=== PATIENT | male | born 1990 | race Two or more races ===

== ENCOUNTER 2021-06-28 09:12 | Emergency (ER) | payer MEDICAID, SELFPAY ==
--- NOTE | ~2021-06-28 | XR_ITS ---
EXAMINATION: XR RIBS, RIGHT CLINICAL INFORMATION: Right upper pectoral pain. COMPARISON: None TECHNIQUE: 3 views of the right ribs and frontal view of the chest were obtained. FINDINGS: Linear airspace disease is noted at left lung base, most consistent with hypoventilatory, atelectatic changes. The cardiomediastinal silhouette and pulmonary vasculature are normal. Osseous structures are unremarkable. Ribs are intact. No fractures are identified. XR/XR ribs RT min 3V w CXR1V IMPRESSION: No radiographic evidence of any displaced right hemithoracic rib fracture. Linear airspace disease at left lung base, most consistent with hypoventilatory, atelectatic changes.
[2021-06-28 09:29] VITALS: BP 194/86; PULSE 84; RESP 18; O2SAT 99; BMI 39.8
--- NOTE | 2021-06-28 11:21 | ED.GENADULT ---
HPI - General Adult General Chief complaint: General Medical Stated complaint: heard crack in chest Time Seen by Provider: 06/28/21 11:12 Source: patient Mode of arrival: ambulatory History of Present Illness HPI narrative: 31-year-old male with a past medical history of asthma presenting to the ED complaining of right-sided anterior chest wall pain s/p pulling a wrench while working on trunk 1.5wks ago. Denies direct injury/trauma or fall. Reports pain worse with movement, deep breathing and palpation. Denies CP, SOB, fever/chills Onset (ago): day(s) Related Data Previous Rx's Medication Instructions Recorded cyclobenzaprine 5 mg tablet 5 mg PO Q8H PRN 5 Days #14 tab 06/28/21 doxycycline hyclate 100 mg tablet 100 mg PO BID 7 Days #14 tab 06/28/21 lidocaine 5 % topical patch 1 patch TOPICAL DAILY PRN #30 ea 06/28/21 (Lidoderm) MDD remove after 12 hours naproxen 500 mg tablet 500 mg PO BID PRN 10 Days #20 tab 06/28/21 Allergies Allergy/AdvReac Type Severity Reaction Status Date / Time No Known Allergies Allergy Unverified 11/14/19 18:29 Review of Systems Review of Systems: Constitutional: No Fever, No Chills ENT/Mouth: No Ear Pain, No Nasal Congestion, No Sinus Pain, No sore throat, No Rhinorrhea, No Swallowing Difficulty Cardiovascular: + Chest Wall Pain, No SOB Respiratory: No Cough, No Sputum Gastrointestinal: No Nausea, No Vomiting, No Diarrhea, No Constipation, No Abdominal pain Genitourinary: No Dysuria, No Urinary Frequency, No Urgency, No Flank Pain Musculoskeletal: No joint pain, No Myalgias, No Joint Swelling Skin: No Skin Lesions, No rash Neuro: No Weakness, No Numbness, No Paresthesias Yes all other systems are reviewed and are negative [facility] Past Medical History Attestation statement: The following information was validated with the patient. Medical History Asthma Social History Social History Advance Directives: No Advance Directives Information Provided: No Physical Exam ED Vital Signs: Vital Signs - 24 hr 06/28/21 09:29 Pulse Rate 84 Respiratory Rate 18 Blood Pressure 194/86 H Pulse Oximetry 99 BMI result Body Mass Index 39.8 Const General: cooperative, healthy appearing and no acute distress Orientation/consciousness: patient oriented x3 Limitations: no limitations HENMT Head: Yes normal to inspection and Yes atraumatic Ears: hearing grossly normal bilaterally General nose exam: Normal external nose present Face and sinus: Yes normal facial exam Eyes General: appearance normal, both eyes and all related structures EOM: EOMs intact bilaterally Neck Neck: Yes normal visual inspection and Yes no meningeal signs Chest Other: right anterior chest wall ttp reproducing subjective complaint, no crepitus, no erythema Chest palpation & inspection: normal inspection of the chest and tenderness Resp Effort & Inspection: normal respiratory effort and no respiratory distress Auscultation: clear to auscultation bilaterally, no rales, no rhonchi and no wheezes Cardio Rate: regular rate Heart sounds: S1 normal heart sound present and S2 normal heart sound present GI Inspection: Yes normal to inspection Palpation (GI): Soft to palpation, nontender, no guarding and not rigid Skin Rashes: no rashes Wounds: no wounds Neuro General: patient oriented x3, tone normal and no meningeal signs Gait exam (Neuro): Normal gait present Extrem General: Yes normal to inspection Course Course Course Narrative: XR ribs RT min 3V w CXR1V IMPRESSION: No radiographic evidence of any displaced right hemithoracic rib fracture. Linear airspace disease at left lung base, most consistent with hypoventilatory, atelectatic changes. ? >> results discussed with patient including worrisome signs and symptoms and strict return precautions and need close follow-up with PCP Medical Decision Making MDM Narrative Medical decision making narrative: 31-year-old male with a past medical history of asthma presenting to the ED complaining of right-sided anterior chest wall pain s/p pulling a wrench while working on trunk 1.5wks ago. On exam VSS, NAD, well appearing, PE as above. Concern for costochondritis vs muscle strain/tear vs fx Plan: XR Medical Records Medical records reviewed: Yes I reviewed the patient's medical records. Lab Data Lab results reviewed: Yes I reviewed the patient's lab results. Discharge Plan Discharge Clinical Impression: Chest wall pain Patient Disposition: Home, Self-Care Instructions: Chest Wall Pain (ED) Additional Instructions: Your chest x-ray is unremarkable Your pain is likely musculoskeletal Flexeril is a muscle relaxer, take at night as it makes you drowsy, do not drive, drink alcohol, or operate machinery while taking it Naproxen as an anti-inflammatory / pain medication, take with food Lidoderm patches are numbing patches, apply to painful area In addition take Tylenol at home If symptoms persist or worsen, pain becomes unbearable, you developed urinary retention or incontinence, or weakness return to the ED Prescriptions: New lidocaine [Lidoderm] 5 % adhesive patch,medicated 1 patch topical DAILY MDD remove after 12 hours PRN (Reason: pain) Qty: 30 0RF Rx Instructions: leave on most painful area for up to 12 hrs doxycycline hyclate 100 mg tablet 100 mg PO BID 7 Days Qty: 14 0RF naproxen 500 mg tablet 500 mg PO BID PRN (Reason: pain) 10 Days Qty: 20 0RF cyclobenzaprine 5 mg tablet 5 mg PO Q8H PRN (Reason: pain (scale score 7-10)) 5 Days Qty: 14 0RF Referrals: Physician,None [Primary Care Provider] - Stand Alone Forms: Work/School Release
[2021-06-28] MEDS: Ketorolac Tromethamine 30 MG/ML VIAL IM (11:38)
== END 2021-06-28 11:50 | disposition home or self-care (01) ==
PROVIDERS: Emergency Provider Emergency Medicine
DX: R07.89 Other chest pain (principal); R07.81 Pleurodynia; Z79.899 Other long term (current) drug therapy
CPT/HCPCS: 71101; 96372; 99283; 99284; J1885

== ENCOUNTER 2021-12-30 16:34 | Emergency (ER) | payer MEDICAID, SELFPAY ==
[2021-12-30 16:48] VITALS: BP 150/81; PULSE 86; RESP 18; TEMP 36.6; O2SAT 98; BMI 43.1
--- NOTE | 2021-12-30 18:59 | ED_ITS ---
HPI - General Adult General Chief complaint: Wound/Laceration Stated complaint: L knee injury Time Seen by Provider: 12/30/21 18:55 Source: patient, RN notes reviewed and old records reviewed Mode of arrival: ambulatory Limitations: no limitations History of Present Illness HPI narrative: 31-year-old male is here today with L knee laceration. 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 Patient reports that he does not feel like the chainsaw caught deep. Is able to move his knee and able to walk on his leg without any issues. Bleeding is well controlled. Patient does not remember when he got his last tetanus vaccine. Onset (ago): hour(s) Location: left and lower extremity Related Data Previous Rx's Medication Instructions Recorded cyclobenzaprine 5 mg tablet 5 mg PO Q8H PRN pain (scale score 06/28/21 7-10) 5 days #14 tabs doxycycline hyclate 100 mg tablet 100 mg PO BID 7 days #14 tabs 06/28/21 lidocaine 5 % topical patch 1 patch topical DAILY PRN pain #30 06/28/21 (Lidoderm) ea naproxen 500 mg tablet 500 mg PO BID PRN pain 10 days #20 06/28/21 tabs cephalexin 500 mg tablet 500 mg PO Q8H 7 days #21 tabs 12/30/21 Allergies Allergy/AdvReac Type Severity Reaction Status Date / Time No Known Allergies Allergy Unverified 11/14/19 18:29 Review of Systems Review of Systems: Yes all other systems are reviewed and are negative PMFSH Past Medical History Medical History Asthma Social History Social History Advance Directives: No Advance Directives Information Provided: No Physical Exam ED Vital Signs: Vital Signs - 24 hr 12/30/21 16:48 Temperature 97.9 F Pulse Rate 86 Respiratory Rate 18 Blood Pressure 150/81 H Pulse Oximetry 98 Oxygen Delivery Method Room Air BMI result Body Mass Index 43.1 Const General: cooperative, healthy appearing and comfortable Orientation/consciousness: patient oriented x3 Skin Other: Trauma: laceration (L knee ) Neuro General: patient oriented x3 Course Course Course Narrative: 31-year-old male is here today with L knee laceration. Patient reports that he was working with [employer] tree when the changed slipped and caught his left leg Cutting through his pants inner side lateral of his knee cap. Patient reports that he does not feel like the chainsaw caught deep. Is able to move his knee and able to walk on his leg without any issues. Bleeding is well controlled. Patient does not remember when he got his last tetanus vaccine. Will medicate with lidocaine, update his tetanus vaccine, suture kit. Patient reports that he does not have any pain right now. First dose of antibiotic given to patient. Patient will follow-up for suture removal in 10-14 days. Discussed patient symptoms of infection like increased redness, drainage from the wound site, increased warmth to the side or fever or chills. Patient was encouraged to finish all of the antibiotics. Post suture care given to patient. Procedures Laceration Laceration 1: Site: lower extremity Side (If applicable): left Size (cm): 3 Description: linear Depth: simple, single layer Local Anesthetic: lidocaine 2% Pre-repair: irrigated extensively Skin layer closed with: nylon Size (cm): 3-0 Technique: simple, interrupted Discharge Plan Discharge Clinical Impression: Laceration Patient Disposition: Home, Self-Care Instructions: Laceration (ED), Stitches Removal (ED) Additional Instructions: You were seen here today after sustaining a superficial laceration to your left leg. You were given tetanus and antibiotics. Six sutures were placed. Please return to emergency department for suture removal in 10-14 days. Please take antibiotics 3 times a day for 7 days. You may return to emergency department if you will have increased redness, drainage, fever. Prescriptions: New cephalexin 500 mg tablet 500 mg PO Q8H 7 Days Qty: 21 0RF No Action lidocaine [Lidoderm] 5 % adhesive patch,medicated 1 patch topical DAILY MDD remove after 12 hours PRN (Reason: pain) Qty: 30 0RF Rx Instructions: leave on most painful area for up to 12 hrs doxycycline hyclate 100 mg tablet 100 mg PO BID 7 Days Qty: 14 0RF naproxen 500 mg tablet 500 mg PO BID PRN (Reason: pain) 10 Days Qty: 20 0RF cyclobenzaprine 5 mg tablet 5 mg PO Q8H PRN (Reason: pain (scale score 7-10)) 5 Days Qty: 14 0RF Stand Alone Forms: Work/School Release Interventions: ED Discharge Assessment Last Done: 12/30/21 20:41 Discharge Date/Time: 12/30/21 20:41
[2021-12-30] MEDS: Diphth,Pertus(ACell),Tet Adult 0.5 ML SYRINGE IM (20:34)
[2021-12-30] MEDS: Lidocaine HCl 2 % MPF 5 ML VIAL SUBCUT (20:35)
[2021-12-30] MEDS: cephALEXin 500 MG CAPSULE PO (20:35)
== END 2021-12-30 20:41 | disposition home or self-care (01) ==
PROVIDERS: Emergency Provider Emergency Medicine
DX: S81.012A Laceration without foreign body, left knee, initial encounter (principal); W29.3XXA Contact with powered garden and outdoor hand tools and machinery, initial encounter; Y93.H9 Activity, other involving exterior property and land maintenance, building and construction; Y92.89 Other specified places as the place of occurrence of the external cause; Y99.0 Civilian activity done for income or pay
CPT/HCPCS: 12002; 90471; 90715; 99282; 99284

== ENCOUNTER 2022-01-22 01:07 | Emergency (ER) | payer MEDICAID, SELFPAY ==
[2022-01-22 01:29] VITALS: BMI 44.4
--- NOTE | 2022-01-22 01:33 | ED.DENTAL ---
HPI - Dental/Oral General Chief complaint: Dental/Oral Stated complaint: Dental pain Time Seen by Provider: 01/22/22 01:38 Source: patient Mode of arrival: ambulatory Limitations: no limitations History of Present Illness HPI Narrative: 31-year-old male hx of uncontrolled htn presents to the emergency department complaints of a traumatic tooth pain x3 days progressively worsening. Patient tells me this pain has been going on for past 3 days, he called to schedule an appoint with a dentist, scheduled to see them on Monday however he tells me he is here today because the pain is intolerable and he does not think he can make it another day without medication. Tells me it feels like nerve pain, and it is worse with eating, reports decreased p.o. intake the last few days because of this. Tells me it is like an electrical shock. Reprots he is worried as he isnt followed by PCP and doesnt have BP meds, he doesnt know which med he used to take. Denies trauma, numbness tingling, fevers, chills, chest pain, headache, nausea, vomiting, abdominal pain, weakness, disequilibrium, dizziness or vision changes. Related Data Previous Rx's Medication Instructions Recorded cyclobenzaprine 5 mg tablet 5 mg PO Q8H PRN pain (scale score 06/28/21 7-10) 5 days #14 tabs doxycycline hyclate 100 mg tablet 100 mg PO BID 7 days #14 tabs 06/28/21 lidocaine 5 % topical patch 1 patch topical DAILY PRN pain #30 06/28/21 (Lidoderm) ea naproxen 500 mg tablet 500 mg PO BID PRN pain 10 days #20 06/28/21 tabs cephalexin 500 mg tablet 500 mg PO Q8H 7 days #21 tabs 12/30/21 amlodipine 5 mg tablet 5 mg PO DAILY #30 tabs 01/22/22 amoxicillin 500 mg capsule 500 mg PO BID 10 days #20 caps 01/22/22 oxycodone 5 mg tablet 5 mg PO BID PRN pain #6 tabs 01/22/22 Allergies Allergy/AdvReac Type Severity Reaction Status Date / Time No Known Allergies Allergy Unverified 11/14/19 18:29 Review of Systems Review of Systems: Constitutional : No Fever, No Chills ENT/Mouth : No swallowing difficulty, no change in voice, positive dental pain, No jaw pain, No facial swelling Eyes: No Eye Pain, No Swelling Cardiovascular : No Chest Pain, No SOB Respiratory : No Cough, No Sputum Gastrointestinal : No Nausea, No Vomiting, No Diarrhea Genitourinary : No Dysuria Musculoskeletal : No Myalgias Skin : No rash Neuro : No Weakness, No Numbness, No Headache Yes all other systems are reviewed and are negative PMFSH Past Medical History Attestation statement: The following information was validated with the patient. Source: old records reviewed and nursing notes reviewed Medical History Asthma Social History Social History Advance Directives: No Advance Directives Information Provided: No Physical Exam Vital Signs: Vital Signs: Last Vital Signs Temp 98.9 F 01/22/22 02:46 Pulse 70 01/22/22 02:46 Resp 18 01/22/22 02:46 BP 185/87 H 01/22/22 02:46 Pulse Ox 100 01/22/22 02:46 O2 Del Method 01/22/22 02:46 BMI result Body Mass Index 44.4 Patient with hypertension. Appearance: Alert.? Oriented X3.? No acute distress.? Normal voice. Head: Normocephalic, atraumatic, no step-offs or deformities Eyes: Pupils equal, round and reactive to light.? ENT: Pharynx normal.? Poor dentition throughout. No signs of dental abscess. Midline uvula. No signs of peritonsillar abscess. Patient controlling secretions well speaking in full sentences. Halitosis noted. No signs of gingival abscess. Caries throughout. Neck: Normal inspection.? Neck supple.? CVS: Normal heart rate and rhythm.? Pulses normal.? Respiratory: No respiratory distress.? Breath sounds normal.? Abdomen: Soft and nontender.? Skin: Skin warm and dry.? Normal skin color.? Normal skin turgor.? Extremities: No lower extremity edema.? No calf ttp. 5/5 strength to bilateral upper and lower extremities Back: No midline tenderness, no C-spine tenderness, full range of motion, no CVA tenderness bilaterally Neuro: Oriented X 3.? No motor deficit.? No sensory deficit. CN 2-12 intact . Normal [id number], random alternating movements normal. Negative pronator drift. Ambulating with steady gait normal coordination. NIH stroke scale 0 Course Reevaluation(s) Reevaluation #1: Patient was noted to have elevated blood pressure here likely secondary to pain however patient does explain to me that he is worried as he does have a diagnosis of hypertension, he has been on blood pressure medications in the past however he has not been followed by PCP in the long time and he is worried about his blood pressure being high and untreated. At this time patient will be started on amlodipine 5 mg p.o, discussed this with Dr. Mora. Will send him home with the same medication. Educated on worrisome signs and symptoms and when to return. Outlined on discharge. At this time I feel comfortable discharge home with prompt dental follow-up. Time: 01:35 Medications Administered Discontinued Medications Generic Name Dose Route Start Last Admin Trade Name Freq PRN Reason Stop Dose Admin Amlodipine Besylate 5 mg 01/22/22 01:56 01/22/22 02:12 Amlodipine Besylate 5 Mg Tablet PO 01/22/22 01:57 5 mg ONCE ONE Administration Protocol Oxycodone HCl 5 mg 01/22/22 01:50 01/22/22 02:12 Oxycodone Hcl Immed Release 5 Mg Tablet PO 01/22/22 01:51 5 mg ONCE ONE Administration MDM - Dental/Oral MDM Narrative Medical decision making narrative: 0135 31-year-old male presents with tooth pain x3 days progressively worsening. Tells me pains intolerable. Tells me has an appointment with a dentist on Monday. Also concern for uncontrolled hypertension, was on blood pressure medications a while ago however. Some in no longer the PCP. Physical exam Pharynx normal.? Poor dentition throughout. No signs of dental abscess. Midline uvula. No signs of peritonsillar abscess. Patient controlling secretions well speaking in full sentences. Halitosis noted. No signs of gingival abscess. Caries throughout. Likely infected tooth versus caries. No signs of dental abscess, no signs of peritonsillar abscess, epiglottitis, stridor or trismus. Patient's blood pressure elevated likely central hypertension. No headache, vision changes, dizziness, weakness, NIH stroke scale 0, low suspicion for stroke, intracranial hemorrhage, posterior stroke. Likely uncontrolled chronic hypertension. Plan at this time is to discharge patient home with amoxicillin. Will start amlodipine for hypertension. Discussed this case with my attending who agrees. Advised him to follow-up with dentist. Medical Records Attestation: I reviewed the patient's medical records. Lab Data Attestation: I reviewed the patient's lab results. Critical Care Time Critical Care Time Critical Care Time: No Discharge Plan Discharge Clinical Impression: Toothache, Hypertension Patient Disposition: Home, Self-Care Instructions: Hypertension (ED), Toothache (ED) Additional Instructions: Take your medications as prescribed. If you were prescribed antibiotics today, it is important that you take your medication to their entirety, do not skip any doses, do not finish them early. Follow-up with your primary care provider this week. Return to the emergency department with new or worsening symptoms. Such as fevers, chills, chest pain, shortness of breath, nausea, vomiting, dizziness, headache, vision changes, lethargy In case of emergency call 911 Please check your blood pressure Monday, Monday, Monday, write it down and follow-up with the PCP. I gave you list of PCPs in the area. Amlodipine is a medication that has been sent to your pharmacy for blood pressure, please take this as prescribed if you his parents any adverse effects please stop it and return for medical treatment. Please see a dentist [phone] [facility] Prescriptions: New amoxicillin 500 mg capsule 500 mg PO BID 10 Days Qty: 20 0RF amlodipine 5 mg tablet 5 mg PO DAILY Qty: 30 0RF oxycodone 5 mg tablet 5 mg PO BID PRN (Reason: pain) Qty: 6 0RF Rx Instructions: Partial Fill upon patient request. No Action cephalexin 500 mg tablet 500 mg PO Q8H 7 Days Qty: 21 0RF lidocaine [Lidoderm] 5 % adhesive patch,medicated 1 patch topical DAILY MDD remove after 12 hours PRN (Reason: pain) Qty: 30 0RF Rx Instructions: leave on most painful area for up to 12 hrs doxycycline hyclate 100 mg tablet 100 mg PO BID 7 Days Qty: 14 0RF naproxen 500 mg tablet 500 mg PO BID PRN (Reason: pain) 10 Days Qty: 20 0RF cyclobenzaprine 5 mg tablet 5 mg PO Q8H PRN (Reason: pain (scale score 7-10)) 5 Days Qty: 14 0RF Referrals: Physician,Unknown J [Physician] - 2 days Stand Alone Forms: Work/School Release
[2022-01-22 01:34] VITALS: BP 192/100; PULSE 67; RESP 18; TEMP 36.8; O2SAT 98
--- NOTE | 2022-01-22 01:48 | PC.NURSE ---
MLP informed of pts high bp reading. Pt has a hx of HTN. Not taking meds at this time. MLP aware.
[2022-01-22] MEDS: amLODIPine Besylate 5 MG TABLET PO (02:12)
[2022-01-22] MEDS: oxyCODONE HCl Immed Release 5 MG TABLET PO (02:12)
[2022-01-22 02:46] VITALS: BP 185/87; PULSE 70; RESP 18; TEMP 37.2; O2SAT 100
== END 2022-01-22 03:09 | disposition home or self-care (01) ==
PROVIDERS: Emergency Provider Internal Medicine
DX: K08.89 Other specified disorders of teeth and supporting structures (principal); I10 Essential (primary) hypertension
CPT/HCPCS: 99283; 99284

== ENCOUNTER 2022-02-27 23:56 | Emergency (ER) | payer MEDICAID, SELFPAY ==
--- NOTE | ~2022-02-27 | XR_ITS ---
EXAMINATION: XR CHEST CLINICAL INFORMATION: Chest pain and cough COMPARISON: None TECHNIQUE: 2 views of the chest were obtained. FINDINGS: No significant abnormality is noted involving the heart, lungs, mediastinum, bony thorax or soft tissues. XR/XR chest 2V IMPRESSION: Unremarkable examination.
[2022-02-28 00:07] VITALS: BP 125/80; PULSE 55; RESP 18; TEMP 36.3; O2SAT 100; BMI 44.4
--- NOTE | 2022-02-28 00:25 | ED_ITS ---
HPI - URI/Sore Throat General Chief Complaint: Upper Respiratory Symptoms Stated Complaint: upper respiratory Time Seen by Provider: 02/28/22 00:15 Source: patient Mode of arrival: ambulatory Limitations: no limitations History of Present Illness HPI Narrative: 31-year-old male who presents emergency department for evaluation of chest pain, cough lightheadedness. Patient states that he has been smoking cigarettes since he was 12 years old and he wanted to quit smoking. He states that he tried a vape pen for the 1st time yesterday. He states that he used it multiple times throughout the day. He states he then developed pain bilaterally in his lower chest. He describes it as a pressure pain which is worse with coughing he states he has also developed a cough which is nonproductive. He states that when he coughs he feels lightheaded and dizzy as if he is going to pass out. Patient states that he was having difficulty sleeping, he thought that he was going to pass out therefore came to the emergency department for evaluation. He denied fever, chills, rhinorrhea, dyspnea on exertion, nausea, vomiting, diarrhea, myalgias arthralgias. Related Data Previous Rx's Medication Instructions Recorded cyclobenzaprine 5 mg tablet 5 mg PO Q8H PRN pain (scale score 06/28/21 7-10) 5 days #14 tabs doxycycline hyclate 100 mg tablet 100 mg PO BID 7 days #14 tabs 06/28/21 lidocaine 5 % topical patch 1 patch topical DAILY PRN pain #30 06/28/21 (Lidoderm) ea naproxen 500 mg tablet 500 mg PO BID PRN pain 10 days #20 06/28/21 tabs cephalexin 500 mg tablet 500 mg PO Q8H 7 days #21 tabs 12/30/21 amlodipine 5 mg tablet 5 mg PO DAILY #30 tabs 01/22/22 amoxicillin 500 mg capsule 500 mg PO BID 10 days #20 caps 01/22/22 oxycodone 5 mg tablet 5 mg PO BID PRN pain #6 tabs 01/22/22 oseltamivir 75 mg capsule (Tamiflu) 75 mg PO Q12H 5 days #10 caps 02/28/22 Allergies Allergy/AdvReac Type Severity Reaction Status Date / Time No Known Allergies Allergy Unverified 11/14/19 18:29 Review of Systems Review of Systems: Yes all other systems are reviewed and are negative PMFSH Past Medical History [facility] Narrative: Past medical history: Hypertension. Social history: Patient smokes 10 cigarettes per day times 19 years. Denies alcohol use. He denies drug use. Medical History Asthma Social History Social History Advance Directives: No Advance Directives Information Provided: No Physical Exam Vital Signs: Vital Signs: Last Vital Signs Temp 97.4 F 02/28/22 00:07 Pulse 55 02/28/22 00:07 Resp 18 02/28/22 00:07 BP 125/80 02/28/22 00:07 Pulse Ox 100 02/28/22 00:07 O2 Del Method 02/28/22 00:07 BMI result Body Mass Index 44.4 Medications Administered Discontinued Medications Generic Name Dose Route Start Last Admin Trade Name Freq PRN Reason Stop Dose Admin Albuterol Sulfate 4 puff 02/28/22 00:25 02/28/22 00:41 Albuterol Sulfate 90 Mcg 8 Gm Inhaler INHALE 02/28/22 00:26 4 puff ONCE STA Administration Medical Decision Making Medical Decision Making [facility] [place] Narrative: 31-year-old male patient who presents emergency department for evaluation lower chest pain and nonproductive cough with symptoms starting after used of a pen yesterday multiple times. Patient states that whenever he coughs he feels like he is going to pass out as well. He had no other significant systemic symptoms. Patient's vital signs were unremarkable and his lung exam was clear with symmetric breath sounds. I ordered a COVID-19, influenza and RSV test as well as chest x-ray two view. Patient will be treated with albuterol inhaler 4 puffs with a spacer to see if this improves his symptoms. Differential Diagnosis Differential diagnosis includes but is not limited to pneumonia, pneumothorax, bronchitis, bronchospasm, influenza, COVID-19, RSV Lab Data [facility] [place] Lab Attestation statement: I reviewed the patient's lab results. Independent interpretation of the lab data consistent with Acute Influenza A Labs: Lab Results 02/28/22 Range/Units 00:13 Influenza Type A (PCR) POSITIVE A (Negative) Influenza Type B (PCR) NEGATIVE (Negative) RSV RNA Qual (PCR) NEGATIVE (Negative) SARS-CoV-2 RNA (RT-PCR) NEGATIVE (Negative) Independent Interpretation I performed an independent interpretation of an: Plain X-Ray Interpretation: Independent interpretation of chest x-ray, no acute disease, no pneumothorax, no pneumonia Radiology Impression Discussion of test interpretation with radiology: I have reviewed the radiologist's reading. Radiologist Impression: IMPRESSION: Unremarkable examination. Dictated By:Jef Alves MDSigned By:<Electronically signed by Jef Alves MD in [place]>02/28/22 0043 Prescription Management Tamiflu 75 mg, q.12 hours x5 days Chronic Conditions Patient?s care impacted by: Hypertension Discharge Plan Discharge Clinical Impression: Influenza A, Chest pain, Cough Patient Disposition: Home, Self-Care Additional Instructions: Your chest x-ray was normal. Your COVID-19 and RSV tests were negative. Your flu test was positive for influenza A. Influenza is a virus that affects your lungs and can make you short of breath, cause cough, headache, muscle aches, weakness, nausea, vomiting and sometimes diarrhea. Take ibuprofen 200 mg pills, 3 pills every 6 hours as needed for pain or fever. Take Tylenol (acetaminophen) 500 mg pills, 2 pills every 4 to 6 hours as needed for pain or fever. Use the albuterol inhaler with the spacer, 2 puffs every 4-6 hours as needed for shortness of breath and wheezing. Take Tamiflu 75 mg pills, 1 pill every 12 hours for 5 days. This medication is for influenza and should help your body fight off the flu. Follow-up with your doctor in 2 days. Please return to the emergency department if your symptoms get worse or if you develop any symptoms that are concerning to you. Prescriptions: New oseltamivir [Tamiflu] 75 mg capsule 75 mg PO Q12H 5 Days Qty: 10 0RF No Action cephalexin 500 mg tablet 500 mg PO Q8H 7 Days Qty: 21 0RF amoxicillin 500 mg capsule 500 mg PO BID 10 Days Qty: 20 0RF amlodipine 5 mg tablet 5 mg PO DAILY Qty: 30 0RF oxycodone 5 mg tablet 5 mg PO BID PRN (Reason: pain) Qty: 6 0RF Rx Instructions: Partial Fill upon patient request. lidocaine [Lidoderm] 5 % adhesive patch,medicated 1 patch topical DAILY MDD remove after 12 hours PRN (Reason: pain) Qty: 30 0RF Rx Instructions: leave on most painful area for up to 12 hrs doxycycline hyclate 100 mg tablet 100 mg PO BID 7 Days Qty: 14 0RF naproxen 500 mg tablet 500 mg PO BID PRN (Reason: pain) 10 Days Qty: 20 0RF cyclobenzaprine 5 mg tablet 5 mg PO Q8H PRN (Reason: pain (scale score 7-10)) 5 Days Qty: 14 0RF
[2022-02-28] MEDS: Albuterol Sulfate 90 MCG 8 GM INHALER 4 PUFF INHALE (00:41)
[2022-02-28 00:56] LABS: Influenza A PCR POSITIVE (Negative); Influenza B PCR NEGATIVE (Negative); Resp Syncy Virus RNA Qual PCR NEGATIVE (Negative); SARS COV2 PCR INHOUSE NEGATIVE (Negative)
--- NOTE | 2022-02-28 01:30 | PC.NURSE ---
Patient states albuterol inhaler helped somewhat. still feels tight.
[2022-02-28] MEDS: Oseltamivir Phosphate 75 MG CAPSULE PO (01:50)
== END 2022-02-28 01:55 | disposition home or self-care (01) ==
PROVIDERS: Emergency Provider Emergency Medicine Emergency Medical Services
DX: J11.1 Influenza due to unidentified influenza virus with other respiratory manifestations (principal); R07.9 Chest pain, unspecified; F17.210 Nicotine dependence, cigarettes, uncomplicated; Z20.822 Contact with and (suspected) exposure to COVID-19
CPT/HCPCS: 0241U; 71046; 99282; 99284

== ENCOUNTER 2022-04-04 23:33 | Emergency (ER) | payer MEDICAID, SELFPAY ==
[2022-04-04 23:56] VITALS: BP 170/73; PULSE 56; RESP 16; TEMP 36.7; O2SAT 99; BMI 44.4
--- NOTE | 2022-04-05 00:15 | ED_ITS ---
HPI - Dental/Oral General Chief complaint: Dental/Oral <DEANDRE Barry - Last Filed: 04/05/22 00:21> Stated complaint: Dental pain <DEANDRE Barry - Last Filed: 04/05/22 00:21> Time Seen by Provider: 04/04/22 23:54 <DEANDRE Barry - Last Filed: 04/05/22 00:21> Source: patient <DEANDRE Barry - Last Filed: 04/05/22 00:21> Mode of arrival: ambulatory <DEANDRE Barry Last Filed: 04/05/22 00:21> Limitations: no limitations <DENADRE Barry Last Filed: 04/05/22 00:21> History of Present Illness HPI Narrative: This is a 31-year-old male presenting to the emergency department with atraumatic right lower 2nd molar pain, patient tells me this has been going on for months worsening over the past few days, he tells me back in December he was on an antibiotics, he tells me they antibiotics made his tooth feel better h owever he has not been able to get into the dentist, he is scheduled to see them May 22. Patient reports severe 10/10 pain worse with cold and hot foods. Patient denies any trauma to the tooth. Denies difficulty swelling, trouble controlling secretions, fevers, chills, trismus, nausea, vomiting, abdominal pain, chest pain, shortness of breath, headache, vision changes, dizziness. <DEANDRE Barry Last Filed: 04/05/22 00:21> Related Data Home medications: Previous Rx's Medication Instructions Recorded cyclobenzaprine 5 mg tablet 5 mg PO Q8H PRN pain (scale score 06/28/21 7-10) 5 days #14 tabs doxycycline hyclate 100 mg tablet 100 mg PO BID 7 days #14 tabs 06/28/21 lidocaine 5 % topical patch 1 patch topical DAILY PRN pain #30 06/28/21 (Lidoderm) ea naproxen 500 mg tablet 500 mg PO BID PRN pain 10 days #20 06/28/21 tabs cephalexin 500 mg tablet 500 mg PO Q8H 7 days #21 tabs 12/30/21 amlodipine 5 mg tablet 5 mg PO DAILY #30 tabs 01/22/22 amoxicillin 500 mg capsule 500 mg PO BID 10 days #20 caps 01/22/22 oxycodone 5 mg tablet 5 mg PO BID PRN pain #6 tabs 01/22/22 oseltamivir 75 mg capsule (Tamiflu) 75 mg PO Q12H 5 days #10 caps 02/28/22 amoxicillin 875 mg-potassium 1 tab PO BID 10 days #20 tabs 04/05/22 clavulanate 125 mg tablet oxycodone 5 mg capsule 5 mg PO Q8H PRN pain #10 caps 04/05/22 <DEANDRE Barry - Last Filed: 04/05/22 00:21> Allergies/adverse reactions: Allergies Allergy/AdvReac Type Severity Reaction Status Date / Time No Known Allergies Allergy Verified 04/04/22 23:56 <DEANDRE Barry - Last Filed: 04/05/22 00:21> Review of Systems Review of Systems: Constitutional : No Fever, No Chills ENT/Mouth : No swallowing difficulty, no change in voice, positive dental pain, No jaw pain, No facial swelling Eyes: No Eye Pain, No Swelling Cardiovascular : No Chest Pain, No SOB Respiratory : No Cough, No Sputum Gastrointestinal : No Nausea, No Vomiting, No Diarrhea Genitourinary : No Dysuria Musculoskeletal : No Myalgias Skin : No rash Neuro : No Weakness, No Numbness, No Headache ? Yes all other systems are reviewed and are negative <DEANDRE Barry Last Filed: 04/05/22 00:21> Yes all other systems are reviewed and are negative <DEANDRE Barry - Last Filed: 04/05/22 00:21> [facility] Past Medical History Attestation statement: The following information was validated with the patient. <DEANDRE Barry - Last Filed: 04/05/22 00:21> Source: old records reviewed and nursing notes reviewed <DEANDRE Barry Last Filed: 04/05/22 00:21> Medical History: Medical History Asthma <DEANDRE Barry - Last Filed: 04/05/22 00:21> Social History Social History: Social History Advance Directives: No Advance Directives Information Provided: Yes <DEANDRE Barry - Last Filed: 04/05/22 00:21> Physical Exam Vital Signs: Vital Signs: Last Vital Signs Temp 98.1 F 04/04/22 23:56 Pulse 56 04/04/22 23:56 Resp 16 04/04/22 23:56 BP 170/73 H 04/04/22 23:56 Pulse Ox 99 04/04/22 23:56 O2 Del Method 04/04/22 23:56 BMI result Body Mass Index 44.4 Patient with hypertension.? Appearance: Alert.? Oriented X3.? No acute distress.? Normal voice. Head:? Normocephalic, atraumatic, no step-offs or deformities Eyes: Pupils equal, round and reactive to light.? ENT: Pharynx normal.? Poor dentition throughout.? No signs of dental abscess.? Midline uvula.? No signs of peritonsillar abscess.? Patient controlling secretions well speaking in full sentences.? Halitosis noted.? No signs of gingival abscess.? Caries throughout. Neck: Normal inspection.? Neck supple.?+ pain w/ palpation of lower left second molar CVS: Normal heart rate and rhythm.? Pulses normal.? Respiratory: No respiratory distress.? Breath sounds normal.? Abdomen: Soft and nontender.? Skin: Skin warm and dry.? Normal skin color.? Normal skin turgor.? Extremities: No lower extremity edema.? No calf ttp.? 5/5 strength to bilateral upper and lower extremities Back:? No midline tenderness, no C-spine tenderness, full range of motion, no CVA tenderness bilaterally Neuro: Oriented X 3.? No motor deficit.? No sensory deficit. CN 2-12 intact .? Normal [id number], random alternating movements normal.? Negative pronator drift.? Ambulating with steady gait normal coordination. <DEANDRE Barry - Last Filed: 04/05/22 00:21> Vital Signs: Last Vital Signs Temp 98.1 F 04/04/22 23:56 Pulse 56 02/06/23 23:56 Resp 16 04/04/22 23:56 BP 170/73 H 04/04/22 23:56 Pulse Ox 99 04/04/22 23:56 O2 Del Method 04/04/22 23:56 BMI result Body Mass Index 44.4 <Amaury Chavez MD - Last Filed: 04/05/22 00:26> Course Reevaluation(s) Reevaluation #1: Patient will be given his 1st dose of Augmentin here, I will also give oxycodone. Patient will follow-up with dentist tomorrow. Educated patient on diagnosis and treatment plan, answered all question, patient verbalizes understanding. At this time patient will be discharged home, advised to return with new or worsening symptoms. Educated on worrisome signs and symptoms and when to return. At this time I feel comfortable discharge home. <DEANDRE Barry - Last Filed: 04/05/22 00:21> Time: 00:21 <DEANDRE Barry - Last Filed: 04/05/22 00:21> Medications Administered Discontinued Medications Generic Name Dose Route Start Last Admin Trade Name Freq PRN Reason Stop Dose Admin Amoxicillin/Clavulanate Potassium 875 mg 04/05/22 00:20 04/05/22 00:25 Amoxicillin/Potassium Clav 875 Mg Tablet PO 04/05/22 00:21 875 mg ONCE ONE Administration Oxycodone HCl 5 mg 04/05/22 00:20 04/05/22 00:25 Oxycodone Hcl Immed Release 5 Mg Tablet PO 04/05/22 00:21 5 mg ONCE ONE Administration <DEANDRE Barry - Last Filed: 04/05/22 00:21> Medications Administered Discontinued Medications Generic Name Dose Route Start Last Admin Trade Name Freq PRN Reason Stop Dose Admin Amoxicillin/Clavulanate Potassium 875 mg 04/05/22 00:20 04/05/22 00:25 Amoxicillin/Potassium Clav 875 Mg Tablet PO 04/05/22 00:21 875 mg ONCE ONE Administration Oxycodone HCl 5 mg 04/05/22 00:20 04/05/22 00:25 Oxycodone Hcl Immed Release 5 Mg Tablet PO 04/05/22 00:21 5 mg ONCE ONE Administration <Amaury Chavez MD - Last Filed: 04/05/22 00:26> Medical Decision Making Medical Decision Making [facility] Narrative: [birth year] 31 yo M presents w/ lower left tooth pain X month worrsening over the past through days Pe w/ Pharynx normal.? Poor dentition throughout.? No signs of dental abscess.? Midline uvula.? No signs of peritonsillar abscess.? Patient controlling secretions well speaking in full sentences.? Halitosis noted.? No signs of gingival abscess.? Caries throughout. Neck: Normal inspection.? Neck supple.?+ pain w/ palpation of lower left second molar. No trismus. Likely dental caries. No signs of dental abscess, retropharyngeal abscess, epiglottitis. No signs of airway compromise. Plan at this time pain control, antibiotics. Patient tells me he will call tomorrow to see if he can get into a same-day dental office. <DEANDRE Barry - Last Filed: 04/05/22 00:21> Differential Diagnosis Differential Diagnoses: The differential diagnosis associated with the presentation includes <DEANDRE Barry - Last Filed: 04/05/22 00:21> Likely dental caries. No signs of dental abscess, retropharyngeal abscess, epiglottitis. No signs of airway compromise. <DEANDRE Barry - Last Filed: 04/05/22 00:21> Admission/Observation Consideration of admission/observation: Escalation of care including admission/observation considered <DEANDRE Barry - Last Filed: 04/05/22 00:21> Core Measures AMI core measures followed: Yes <DEANDRE Barry - Last Filed: 04/05/22 00:21> Measure exclusions: not indicated <DEANDRE Barry - Last Filed: 04/05/22 00:21> Attestation Attending Attestation: I reviewed [employer] TECHNICIAN/PA/Resident note, assessment and plan. I agree with the documentation, assessment and plan unless otherwise stated. <Amaury Chavez MD - Last Filed: 04/05/22 00:26> Critical Care Time Critical Care Time Critical Care Time: No <DEANDRE Barry - Last Filed: 04/05/22 00:21> Discharge Plan Discharge Clinical Impression: Toothache <DEANDRE Barry - Last Filed: 04/05/22 00:21> Patient Disposition: Home, Self-Care <DEANDRE Barry - Last Filed: 04/05/22 00:21> Instructions: Toothache (ED) <DEANDRE Barry - Last Filed: 04/05/22 00:21> Additional Instructions: Take your medications as prescribed. If you were prescribed antibiotics today, it is important that you take your medication to their entirety, do not skip any doses, do not finish them early. Follow-up with your primary care provider this week. Return to the emergency department with new or worsening symptoms. Such as fevers, chills, chest pain, shortness of breath, nausea, vomiting, dizziness, headache, vision changes, lethargy In case of emergency call 911 Please see a dentist [facility] [phone] [facility] [phone] [facility] [address] <DEANDRE Barry - Last Filed: 04/05/22 00:21> Prescriptions: New oxycodone 5 mg capsule 5 mg PO Q8H PRN (Reason: pain) Qty: 10 0RF Rx Instructions: Partial Fill upon patient request. amoxicillin-pot clavulanate 875-125 mg tablet 1 tab PO BID 10 Days Qty: 20 0RF No Action cephalexin 500 mg tablet 500 mg PO Q8H 7 Days Qty: 21 0RF amoxicillin 500 mg capsule 500 mg PO BID 10 Days Qty: 20 0RF amlodipine 5 mg tablet 5 mg PO DAILY Qty: 30 0RF oxycodone 5 mg tablet 5 mg PO BID PRN (Reason: pain) Qty: 6 0RF Rx Instructions: Partial Fill upon patient request. oseltamivir [Tamiflu] 75 mg capsule 75 mg PO Q12H 5 Days Qty: 10 0RF lidocaine [Lidoderm] 5 % adhesive patch,medicated 1 patch topical DAILY MDD remove after 12 hours PRN (Reason: pain) Qty: 30 0RF Rx Instructions: leave on most painful area for up to 12 hrs doxycycline hyclate 100 mg tablet 100 mg PO BID 7 Days Qty: 14 0RF naproxen 500 mg tablet 500 mg PO BID PRN (Reason: pain) 10 Days Qty: 20 0RF cyclobenzaprine 5 mg tablet 5 mg PO Q8H PRN (Reason: pain (scale score 7-10)) 5 Days Qty: 14 0RF <DEANDRE Barry - Last Filed: 04/05/22 00:21> Referrals: Physician,None [Primary Care Provider] - 2 days <DEANDRE Barry - Last Filed: 04/05/22 00:21> Stand Alone Forms: Work/School Release <DEANDRE Barry - Last Filed: 04/05/22 00:21>
[2022-04-05] MEDS: Amoxicillin/Potassium Clav 875 MG TABLET PO (00:25)
[2022-04-05] MEDS: oxyCODONE HCl Immed Release 5 MG TABLET PO (00:25)
--- NOTE | 2022-04-05 00:31 | PC.NURSE ---
pt medicated according to mar. pt called to pick pt up or ride home. pt provided with discharge packet and work note at this time. pt verbalizes understanding of discharge plan
== END 2022-04-05 00:31 | disposition home or self-care (01) ==
PROVIDERS: Emergency Provider Emergency Medicine
DX: K08.89 Other specified disorders of teeth and supporting structures (principal)
CPT/HCPCS: 99283; 99284

== ENCOUNTER 2023-01-28 23:30 | Emergency (ER) | payer MEDICAID, SELFPAY ==
--- NOTE | ~2023-01-28 | XR_ITS ---
EXAMINATION: XR KNEE, LEFT CLINICAL INFORMATION: Left knee injury 2 days ago. COMPARISON: None available. TECHNIQUE: Four views of the left knee. FINDINGS: No joint effusion noted. Soft tissue prominence is present anterior to the tibial tubercle. The visualized patellar ligament appears intact. The patella is normal in appearance. No fractures or subluxations visualized. No soft tissue emphysematous changes noted. Enthesopathic changes characterized by a well-corticated ossific body which is chronic in appearance are noted in association with the tibial tubercle. XR/XR knee LT 4V IMPRESSION: *Soft tissue inflammatory changes anterior to the proximal tibia. *No acute fractures or subluxations. *No new gross joint effusion.
--- NOTE | ~2023-01-28 | XR_ITS ---
EXAMINATION: XR TIBIA AND FIBULA, LEFT CLINICAL INFORMATION: Trauma COMPARISON: None available. TECHNIQUE: AP and lateral views of the left tibia and fibula were obtained. FINDINGS: Alignment at the knee and ankle appears anatomic on these views. Small chronic appearing calcification noted near the tibial tuberosity. Overlying soft tissue swelling is suspected. No acute fracture is seen. XR/XR tibia fibula LT 2V IMPRESSION: No acute fracture identified. Suspect anterior soft tissue swelling near the proximal tibia.
[2023-01-28 23:37] VITALS: BP 147/81; PULSE 100; RESP 18; TEMP 37.4; O2SAT 95; BMI 44.3
--- NOTE | 2023-01-29 00:59 | ED.GENADULT ---
HPI - General Adult General Chief complaint: Extremity Injury, Lower Stated complaint: swollen knee Time Seen by Provider: 01/29/23 00:44 Source: patient Limitations: no limitations History of Present Illness HPI narrative: Pt is a 32yo male who presents to the ED with left lower extremity pain. Pt states on or Monday he was working under a car and a very heavy part (over 100lbs) fell directly on his patella. Pt states since then the pain has been severe and not relieved by tylonel, ibuprofen, excedrin, or Ice-E hot. Pt states the pain is radiating up his leg into the thigh but denies ankle pain. States he can walk on it but just barely due to pain. Pt denies numbness, loss of sensation, or tingling in the extremity. Related Data Previous Rx's Medication Instructions Recorded cyclobenzaprine 5 mg tablet 5 mg PO Q8H PRN pain (scale score 06/28/21 7-10) 5 days #14 tabs doxycycline hyclate 100 mg tablet 100 mg PO BID 7 days #14 tabs 06/28/21 lidocaine 5 % topical patch 1 patch topical DAILY PRN pain #30 06/28/21 (Lidoderm) ea naproxen 500 mg tablet 500 mg PO BID PRN pain 10 days #20 06/28/21 tabs cephalexin 500 mg tablet 500 mg PO Q8H 7 days #21 tabs 12/30/21 amlodipine 5 mg tablet 5 mg PO DAILY #30 tabs 01/22/22 amoxicillin 500 mg capsule 500 mg PO BID 10 days #20 caps 01/22/22 oxycodone 5 mg tablet 5 mg PO BID PRN pain #6 tabs 01/22/22 oseltamivir 75 mg capsule (Tamiflu) 75 mg PO Q12H 5 days #10 caps 02/28/22 amoxicillin 875 mg-potassium 1 tab PO BID 10 days #20 tabs 04/05/22 clavulanate 125 mg tablet oxycodone 5 mg capsule 5 mg PO Q8H PRN pain #10 caps 04/05/22 cephalexin 500 mg capsule 500 mg PO QID #28 caps 01/29/23 tramadol 50 mg tablet 50 mg PO Q6H PRN severe pain 01/29/23 (scale score 7-10) #12 tabs Allergies Allergy/AdvReac Type Severity Reaction Status Date / Time No Known Allergies Allergy Verified 01/28/23 23:37 Review of Systems Constitutional: Constitutional: Denies chills and Denies headache(s) ENT: Denies dizziness and Denies headache(s) Cardiovascular: Cardiovascular: Denies chest pain, Reports leg edema (left calf swelling) and Denies dyspnea Respiratory: Respiratory: Denies dyspnea Gastrointestinal: Gastrointestinal: Denies nausea and Denies vomiting Musculoskeletal: Musculoskeletal: Reports abnormal gait, Reports arthralgias, Reports joint swelling, Reports limited range of motion, Denies numbness and Denies tingling Integumentary/Breasts: Skin/Breast: Reports swelling Neurologic: Reports abnormal gait, Denies dizziness, Denies headache(s), Denies numbness and Denies tingling PMF Past Medical History Medical History Asthma Social History Social History Advance Directives: No Advance Directives Information Provided: No Physical Exam ED Vital Signs: Vital Signs - 24 hr 01/28/23 23:37 Temperature 99.3 F Pulse Rate 100 Respiratory Rate 18 Blood Pressure 147/81 H Pulse Oximetry 95 Oxygen Delivery Method Room Air BMI result Body Mass Index 44.3 Const General: cooperative, no acute distress, alert, awake and other (uncomfortable appearing) Orientation/consciousness: patient oriented x3 HENMT Head: Yes normal to inspection Ears: hearing grossly normal bilaterally General nose exam: Normal external nose present Eyes General: appearance normal, both eyes and all related structures Resp Effort & Inspection: normal respiratory effort and able to speak in complete sentences Neuro General: patient oriented x3 Extrem Left lower extremity: edema Details: non-pitting, knee Details: tenderness and swelling and lower leg (pulses, sensation, and motor function intact) Details: erythema, tenderness and localized swelling; abnormal to inspection (mild erythema with increased warmth on palpation to the LLE below the knee) Course Reevaluation(s) Reevaluation #1: The patient had left knee x-ray ordered in triage, however during my exam the patient has pain, swelling, tenderness inferior to this to the mid lower leg over the tibia and fibula. I sent the patient for a tib-fib x-ray Time: 01:21 Reevaluation #2: Patient's x-rays are all negative for fracture, given the erythema increased warmth, will treat cephalexin for cellulitis Time: 01:37 Medications Administered Discontinued Medications Generic Name Dose Route Start Last Admin Trade Name Micaela PRN Reason Stop Dose Admin Tramadol HCl 50 mg 01/29/23 01:01 01/29/23 01:21 Tramadol Hcl 50 Mg Tablet PO 01/29/23 01:02 50 mg ONCE ONE Administration Medical Decision Making Medical Decision Making [facility] Narrative: 32-year-old male presents for evaluation after traumatic injury to left knee. He has edema and swelling to inferior aspect the left knee extending down to the mid fibula/tibia. He has some erythema with increased warmth. There are no open wounds. Patient is able to the flex in the but has pain with this. There is a low suspicion for septic joint. He has good, 2+ DP pulses. He is able to wiggle all toes of the left foot and move the foot without difficulty. Low suspicion for compartment syndrome. Differential Diagnosis Differential Diagnoses: The differential diagnosis associated with the presentation includes (Proximal tibia fracture, proximal fibula fracture, soft tissue injury, DVT, compartment syndrome, contusion) Independent Interpretation I performed an independent interpretation of an: Plain X-Ray (No osseous injury to the left knee or lower leg) Radiology Impression Discussion of test interpretation with radiology: I have reviewed the radiologist's reading. (Soft tissue inflammatory changes anterior to the proximal tibia) Discharge Plan Discharge Clinical Impression: Acute pain of left lower extremity Patient Disposition: Home, Self-Care Instructions: Leg Pain (ED) Additional Instructions: Your x-rays were all negative for fracture. Given the redness, increased warmth, I recommend he take cephalexin 4 times daily for 7 days to cover for any infection You may use tramadol for more severe pain that is unrelieved with ibuprofen and Tylenol This may make you sleepy, did not drink alcohol or drive after taking it Follow-up with your primary doctor Return for new or worsening symptoms Prescriptions: New cephalexin 500 mg capsule 500 mg PO QID Qty: 28 0RF tramadol 50 mg tablet 50 mg PO Q6H PRN (Reason: severe pain (scale score 7-10)) Qty: 12 0RF No Action cephalexin 500 mg tablet 500 mg PO Q8H 7 Days Qty: 21 0RF amoxicillin 500 mg capsule 500 mg PO BID 10 Days Qty: 20 0RF amlodipine 5 mg tablet 5 mg PO DAILY Qty: 30 0RF oxycodone 5 mg tablet 5 mg PO BID PRN (Reason: pain) Qty: 6 0RF Rx Instructions: Partial Fill upon patient request. oseltamivir [Tamiflu] 75 mg capsule 75 mg PO Q12H 5 Days Qty: 10 0RF lidocaine [Lidoderm] 5 % adhesive patch,medicated 1 patch topical DAILY MDD remove after 12 hours PRN (Reason: pain) Qty: 30 0RF Rx Instructions: leave on most painful area for up to 12 hrs doxycycline hyclate 100 mg tablet 100 mg PO BID 7 Days Qty: 14 0RF naproxen 500 mg tablet 500 mg PO BID PRN (Reason: pain) 10 Days Qty: 20 0RF cyclobenzaprine 5 mg tablet 5 mg PO Q8H PRN (Reason: pain (scale score 7-10)) 5 Days Qty: 14 0RF oxycodone 5 mg capsule 5 mg PO Q8H PRN (Reason: pain) Qty: 10 0RF Rx Instructions: Partial Fill upon patient request. amoxicillin-pot clavulanate 875-125 mg tablet 1 tab PO BID 10 Days Qty: 20 0RF
[2023-01-29] MEDS: traMADoL HCL 50 MG TABLET PO (01:21)
== END 2023-01-29 02:01 | disposition home or self-care (01) ==
PROVIDERS: Emergency Provider Internal Medicine
DX: M79.89 Other specified soft tissue disorders (principal); S89.92XA Unspecified injury of left lower leg, initial encounter; W20.8XXA Other cause of strike by thrown, projected or falling object, initial encounter; Y92.810 Car as the place of occurrence of the external cause; Y93.89 Activity, other specified; Y92.89 Other specified places as the place of occurrence of the external cause; Y99.9 Unspecified external cause status
CPT/HCPCS: 73564; 73590; 99284

== ENCOUNTER 2023-03-20 12:22 | Outpatient (AMB) | payer MEDICAID, SELFPAY ==
--- NOTE | 2023-03-20 12:25 | MHC.OFFVIS ---
Intake Vital Signs 03/20/23 12:26 Height 5 ft 9 in Weight 300 lb BMI 44.3 Intake Visit Reasons: [employer]- LT Knee pain Intake Note: Coy is a 32 year old male who presents today as a new patient with complaints of left knee pain. About a months ago he was working on a car when a heavy part, weighing about 100lbs, fell on his knee. After injury he was seen at [facility]. He reports that he has had ongoing bilateral knee pain since he was a child. He explains that the pain starts in the bottom of his feet and radiating up the legs, he describes his pain as pins. He has frequent numbness of the feet. Allergies No Known Allergies Allergy (Verified 01/28/23 23:37) HPI [employer]- LT Knee pain HPI Details Coy is a 32 year old man who presents with complaints of worsening left knee pain. He reports having bilateral knee pain since he was a child, but ~6 weeks ago he dropped a heavy car part, weighing ~100lbs, fell onto his knee. He was seen in the ED and referred here. He describes his symptom as pins & needles, that begins in his feet and radiates up his leg. He has issues with intermittent but frequent, numbness in his feet. COUNTS INCLUDE 234 BEDS AT THE [facility] Medical History Asthma Review of Systems Const All systems reviewed & are unremarkable except as noted in HPI and below Physical Exam Vital Signs: BMI result Body Mass Index 44.3 Const General: no acute distress, alert and awake Orientation/consciousness: patient oriented x3 HEENT Head: Yes normocephalic and Yes atraumatic Eyes EOM: EOMs intact bilaterally Resp Effort & Inspection: normal respiratory effort and able to speak in complete sentences Cardio Jugular venous distension: no JVD Skin General skin exam: turgor normal Rashes: no rashes Neuro General: patient oriented x3 Extrem Other: ttp bilateral tibial tubercle There is aseptic bursal swelling right prepatellar region 5/5 ps/q/h/ta/ehl/gc no clonus symetric reflexes patella Psych Appearance: grossly normal Affect: normal affect Attitude: cooperative Results Reviewed Results Reviewed: I personally reviewed relevant radiographs. No acute fracture identified. Suspect anterior soft tissue swelling near the proximal tibia. Assessment & Plan Assessment & Plan (1) Bilateral leg numbness: Code(s): R20.0 - Anesthesia of skin Plan: Symptoms of persistent postion dependent leg numbness that limits his activity and prevents him from sitting. MRI to assess (2) Bilateral anterior knee pain: Code(s): M25.561 - Pain in right knee; M25.562 - Pain in left knee Plan: TTP bilateral tibial tubercle with healed TT apophyseal bone. Knee bracing and PT. NSAID's Plan Prepared for Fidencio Villatoro MD by Thee Delgado, medical front desk specialist, on 03/20/23 at 12:36 PM, EST. Orders: Orders MR lumbar spine wo con 03/20/23 R20.0 - Anesthesia of skin PT Evaluation and Treatment 03/20/23 M25.561 - Pain in right knee, M25.562 - Pain in left knee Medications: Changed From naproxen 500 mg PO BID 10 days PRN 20 tabs 0RF pain To naproxen 500 mg PO BID 30 days PRN 60 tabs 0RF pain Coding Level of Care Code New Pt Level 4 (42023) Diagnoses Bilateral leg numbness R20.0 Bilateral anterior knee pain M25.561; M25.562
[2023-03-20 12:26] VITALS: BMI 44.3
== END 2023-03-20 13:27 | disposition home or self-care (01) ==
PROVIDERS: Visit Provider Orthopaedic Surgery
DX: R20.0 Anesthesia of skin (principal); M25.561 Pain in right knee; M25.562 Pain in left knee
CPT/HCPCS: 99203

== ENCOUNTER → 2023-03-20 12:22 | Outpatient (BNVA) | payer MEDICAID, SELFPAY | PROVIDERS: Visit Provider Orthopaedic Surgery | DX: M25.561 Pain in right knee (principal); M25.562 Pain in left knee; R20.0 Anesthesia of skin | CPT/HCPCS: 99202 ==

== ENCOUNTER 2023-05-25 10:57 | Emergency (ER) | payer MEDICAID, SELFPAY ==
--- NOTE | 2023-05-25 | ECG_ITS ---
Test Reason : CHEST PAIN Blood Pressure : / mmHG Vent. Rate : 072 BPM Atrial Rate : 072 BPM P-R Int : 158 ms QRS Dur : 094 ms QT Int : 372 ms P-R-T Axes : 043 014 028 degrees QTc Int : 407 ms Sinus rhythm with marked sinus arrhythmia Otherwise normal ECG When compared to the previous EKG of No significant changes seen Referred By: Generic ED Physician Electronically Signed By:Robe Whitehead
--- NOTE | ~2023-05-25 | XR_ITS ---
EXAMINATION: XR CHEST CLINICAL INFORMATION: Chest pain COMPARISON: 02/28/2022 TECHNIQUE: 2 views of the chest were obtained. FINDINGS: No significant abnormality is noted involving the heart, lungs, mediastinum, bony thorax or soft tissues. XR/XR chest 2V IMPRESSION: Unremarkable examination.
[2023-05-25 11:19] LABS: MANUAL DIFF FLAG NO
[2023-05-25 11:22] LABS: Basophils Absolute Auto 0.1 X10*3/uL (0.0-0.2); Basophils Percent Auto 0.9 % (0-2); Eosinophils Absolute Auto 0.2 X10*3/uL (0.0-0.4); Eosinophils Percent Auto 3.4 % (0-4); Hematocrit 47.6 % (42.0-52.0); Hemoglobin 17.6 g/dl (14.0-18.0); Imm Gran Abs Auto 0.02 X10*3/uL (0.00-0.03); Imm Gran Pct Auto 0.3 % (0.0-0.4); Lymphocytes Absolute Auto 2.9 X10*3/uL (1.2-4.9); Lymphocytes Percent Auto 42.2 % (20-40); Mean Corpuscular Hemoglobin 29.8 pg (27.0-33.0); Mean Corpuscular Volume 80.5 fL (80.0-98.0); Mean Platelet Volume 10.4 fL (9.4-12.4); Monocytes Absolute Auto 0.7 X10*3/uL (0.1-1.2); Monocytes Percent Auto 10.4 % (2-11); Neutrophils Absolute Auto 2.9 x10*3/uL (2.0-8.3); Neutrophils Percent Auto 42.8 % (45-73); Platelet Count 292 X10*3/uL (160-400); Red Blood Count 5.91 X10*6/uL (4.60-5.80); Red Cell Distribution Width 12.8 % (11.0-16.0); White Blood Count 6.8 X10*3/uL (4.8-10.8)
[2023-05-25 11:25] VITALS: BP 162/85; PULSE 62; RESP 16; TEMP 37.1; O2SAT 96; BMI 47.2
--- NOTE | 2023-05-25 11:26 | ED.CHESTPAIN ---
HPI - Chest Pain General Chief Complaint: Chest Pain Stated Complaint: Chest pain 3 days Time Seen by Provider: 05/25/23 18:12 Source: patient Mode of arrival: ambulatory Limitations: no limitations History of Present Illness HPI narrative: 33-year-old otherwise healthy presents emergency department complaining of chest pain he has had it for several days states it is intermittent he denies any coughing shortness breath he has had the same to have him in the past has any falls lifting or injuries family history of at early age he has not hypoxic or tachycardic he denies any fevers recent illness any recent lifting or falls to explain the pain. Related Data Previous Rx's Medication Instructions Recorded cyclobenzaprine 5 mg tablet 5 mg PO Q8H PRN pain (scale score 06/28/21 7-10) 5 days #14 tabs doxycycline hyclate 100 mg tablet 100 mg PO BID 7 days #14 tabs 06/28/21 lidocaine 5 % topical patch 1 patch topical DAILY PRN pain #30 06/28/21 (Lidoderm) ea cephalexin 500 mg tablet 500 mg PO Q8H 7 days #21 tabs 12/30/21 amlodipine 5 mg tablet 5 mg PO DAILY #30 tabs 01/22/22 amoxicillin 500 mg capsule 500 mg PO BID 10 days #20 caps 01/22/22 oxycodone 5 mg tablet 5 mg PO BID PRN pain #6 tabs 01/22/22 oseltamivir 75 mg capsule (Tamiflu) 75 mg PO Q12H 5 days #10 caps 02/28/22 amoxicillin 875 mg-potassium 1 tab PO BID 10 days #20 tabs 04/05/22 clavulanate 125 mg tablet oxycodone 5 mg capsule 5 mg PO Q8H PRN pain #10 caps 04/05/22 cephalexin 500 mg capsule 500 mg PO QID #28 caps 01/29/23 tramadol 50 mg tablet 50 mg PO Q6H PRN severe pain 01/29/23 (scale score 7-10) #12 tabs naproxen 500 mg tablet 500 mg PO BID PRN pain 30 days #60 03/20/23 tabs prednisone 20 mg tablet 60 mg (3 x 20 mg) PO DAILY Asthma 05/25/23 5 days #15 tabs Allergies Allergy/AdvReac Type Severity Reaction Status Date / Time No Known Allergies Allergy Verified 05/25/23 11:24 Review of Systems Review of Systems: Review of systems: General: Patient denies any fever chills recent illness or falls Musculoskeletal: Denies back pain or body aches or other injuries HEENT: denies headache, runny nose, ear pain Respiratory: denies shortness of breath, cough Cardiovascular: no chest pain or palpitations : denies dysuria, frequency Abdomen: no nausea vomiting denies abdominal pain Extremities: no swelling, no pain Skin: no diaphoresis Yes all other systems are reviewed and are negative PMFSH Past Medical History Medical History Asthma Social History Social History Advance Directives: No Physical Exam Vital Signs: Vital Signs: Last Vital Signs Temp 98.2 F 05/25/23 16:25 Pulse 63 05/25/23 16:25 Resp 18 05/25/23 16:25 BP 180/80 H 05/25/23 16:25 Pulse Ox 99 05/25/23 16:25 O2 Del Method Room Air 05/25/23 16:25 BMI result Body Mass Index 47.2 General: Well-appearing well-nourished in no signs of distress HEENT: Normocephalic atraumatic Neck: No signs of JVD, no masses no tenderness or lymphadenopathy Cardiovascular: Regular rate and rhythm pain is reprodubible with palpation of the left chest upper chest wall no redness or signs of infection or rash. Respiratory: Clear to auscultation bilaterally Abdomen: Soft nontender no masses Extremities: Normal pedal pulses no signs of edema Skin: Dry warm no rashes Back: No tenderness full ROM Course Course Course Narrative: RME:?33 yo male here for eval of chest pain that began while sleeping 4 days ago. denies palpitations, SOB, cough, hemoptysis, LE pain/ swelling. no recent travel/ long car rides. no known sick contacts. labs, ekg, chest xr, viral swabs ordered. Full HPI, ROS and PE to be performed by the primary ED provider. Medical Decision Making Medical Decision Making [facility] Narrative: Patient with benign chest pain normal EKG normal labs including troponin chest x-ray I feel the patient safe to go home Differential Diagnosis Differential Diagnoses: The differential diagnosis associated with the presentation includes Costochondritis ACS pneumonia PE aortic dissection esophageal rupture on the differential the patient sounds like he is has chest pain unknown exact reason this could be costochondritis recommend ibuprofen for the patient Lab Data MDM Lab Attestation statement: I reviewed the patient's lab results. 05/25/23 11:15 05/25/23 11:15 Labs: Lab Results 05/25/23 Range/Units 11:15 WBC 6.8 (4.8-10.8) X10*3/uL RBC 5.91 H (4.60-5.80) X10*6/uL Hgb 17.6 (14.0-18.0) g/dl Hct 47.6 (42.0-52.0) % MCV 80.5 (80.0-98.0) fL MCH 29.8 (27.0-33.0) pg MCHC 37.0 H (31.0-36.0) g/dl RDW 12.8 (11.0-16.0) % Plt Count 292 (160-400) X10*3/uL MPV 10.4 (9.4-12.4) fL Immature Gran % (Auto) 0.3 (0.0-0.4) % Neut % (Auto) 42.8 L (45-73) % Lymph % (Auto) 42.2 H (20-40) % Terry % (Auto) 10.4 (2-11) % Eos % (Auto) 3.4 (0-4) % Baso % (Auto) 0.9 (0-2) % Lymph # (Auto) 2.9 (1.2-4.9) X10*3/uL Terry # (Auto) 0.7 (0.1-1.2) X10*3/uL Eos # (Auto) 0.2 (0.0-0.4) X10*3/uL Baso # (Auto) 0.1 (0.0-0.2) X10*3/uL Abs Immat Gran (auto) 0.02 (0.00-0.03) X10*3/uL Absolute Neuts (auto) 2.9 (2.0-8.3) x10*3/uL Absolute Nucleated RBC 0.000 (0.0-0.012) X10*3/uL Nucleated RBC % (auto) 0.0 (0.0-0.2) /100WBC Sodium 141 (135-145) mmol/L Potassium 4.2 (3.3-5.1) mmol/L Chloride 105 (96-108) mmol/L Carbon Dioxide 26 (22-29) mmol/L Anion Gap 14 (12-20) BUN 11 (9-16) mg/dL Creatinine 0.78 (0.5-1.4) mg/dL Estim Creat Clear Calc 187.1 Estimated GFR > 60 Random Glucose 91 (60-115) mg/dL Calcium 10.0 (8.4-10.2) mg/dL Magnesium 2.0 (1.6-2.6) mg/dL Total Bilirubin 0.7 (0.0-1.0) mg/dL AST 25 (5-37) U/L ALT 43 H (0-40) U/L Alkaline Phosphatase 78 (39-117) U/L Troponin I High Sens < 2.7 (<3.5-35.0) ng/L Total Protein 8.1 H (6.5-8.0) g/dL Albumin 4.7 (3.5-5.0) g/dL Influenza Type A (PCR) NEGATIVE (Negative) Influenza Type B (PCR) NEGATIVE (Negative) RSV RNA Qual (PCR) NEGATIVE (Negative) SARS-CoV-2 RNA (RT-PCR) NEGATIVE (Negative) Independent Interpretation I performed an independent interpretation of an: EKG and Plain X-Ray Interpretation: Rate 72 normal sinus rhythm normal intervals no signs of ischemia no change from previous interpreted by me Radiology Impression Discussion of test interpretation with radiology: I have reviewed the radiologist's reading. Scores Heart Score History: -0- slightly suspicious ECG: -0- normal Age: -0- < or = 45 Risk factory: -0- no risk factors known Troponin: -0- < or = normal limit Score: 0 Risk: 1.7% Discharge Plan Discharge Clinical Impression: Chest pain Patient Disposition: Home, Self-Care Instructions: Chest Pain (DC) Additional Instructions: You were seen today for chest pain You had XR and labs done which were all normal. Please call to follow up with your doctor. Prescriptions: New prednisone 20 mg tablet 60 mg PO DAILY 5 Days Qty: 15 0RF No Action cephalexin 500 mg tablet 500 mg PO Q8H 7 Days Qty: 21 0RF amoxicillin 500 mg capsule 500 mg PO BID 10 Days Qty: 20 0RF amlodipine 5 mg tablet 5 mg PO DAILY Qty: 30 0RF oxycodone 5 mg tablet 5 mg PO BID PRN (Reason: pain) Qty: 6 0RF Rx Instructions: Partial Fill upon patient request. oseltamivir [Tamiflu] 75 mg capsule 75 mg PO Q12H 5 Days Qty: 10 0RF lidocaine [Lidoderm] 5 % adhesive patch,medicated 1 patch topical DAILY MDD remove after 12 hours PRN (Reason: pain) Qty: 30 0RF Rx Instructions: leave on most painful area for up to 12 hrs doxycycline hyclate 100 mg tablet 100 mg PO BID 7 Days Qty: 14 0RF cyclobenzaprine 5 mg tablet 5 mg PO Q8H PRN (Reason: pain (scale score 7-10)) 5 Days Qty: 14 0RF oxycodone 5 mg capsule 5 mg PO Q8H PRN (Reason: pain) Qty: 10 0RF Rx Instructions: Partial Fill upon patient request. amoxicillin-pot clavulanate 875-125 mg tablet 1 tab PO BID 10 Days Qty: 20 0RF cephalexin 500 mg capsule 500 mg PO QID Qty: 28 0RF tramadol 50 mg tablet 50 mg PO Q6H PRN (Reason: severe pain (scale score 7-10)) Qty: 12 0RF naproxen 500 mg tablet 500 mg PO BID PRN (Reason: pain) 30 Days Qty: 60 0RF Stand Alone Forms: Work/School Release
[2023-05-25 11:40] LABS: Anion Gap 14 (12-20)
[2023-05-25 11:44] LABS: Alanine Aminotransferase 43 U/L (0-40); Albumin Level 4.7 g/dL (3.5-5.0); Alkaline Phosphatase 78 U/L (39-117); Aspartate Amino Transferase 25 U/L (5-37); Bilirubin Total 0.7 mg/dL (0.0-1.0); Blood Urea Nitrogen 11 mg/dL (9-16); Carbon Dioxide 26 mmol/L (22-29); Chloride 105 mmol/L (96-108); Creatinine Clr Calc Pharmacy 187.1; Estimated Glomerular Filt Rate > 60; Glucose Random 91 mg/dL (60-115); Potassium 4.2 mmol/L (3.3-5.1); Sodium 141 mmol/L (135-145); Total Protein 8.1 g/dL (6.5-8.0)
[2023-05-25 11:47] LABS: Troponin-I High Sensitivity < 2.7 ng/L (<3.5-35.0)
[2023-05-25 11:58] LABS: Influenza A PCR NEGATIVE (Negative); Influenza B PCR NEGATIVE (Negative); Resp Syncy Virus RNA Qual PCR NEGATIVE (Negative); SARS COV2 PCR INHOUSE NEGATIVE (Negative)
[2023-05-25 16:25] VITALS: BP 180/80; PULSE 63; RESP 18; TEMP 36.8; O2SAT 99
[2023-05-25 18:35] VITALS: BP 180/80; PULSE 63; RESP 18; TEMP 36.8; O2SAT 99
[2023-05-25] MEDS: predniSONE 20 MG TABLET 60 MG PO (18:39)
== END 2023-05-25 18:40 | disposition home or self-care (01) ==
PROVIDERS: Physician Assistant Medical; Emergency Provider Student in an Organized Health Care Education/Training Program; PCP Family Medicine
DX: R07.9 Chest pain, unspecified (principal); J45.909 Unspecified asthma, uncomplicated; Z11.52 Encounter for screening for COVID-19; Z20.828 Contact with and (suspected) exposure to other viral communicable diseases
CPT/HCPCS: 0241U; 71046; 80053; 83735; 84484; 85025; 93005; 99283

== ENCOUNTER → 2023-05-25 11:09 | Outpatient (BNV) | payer MEDICAID, SELFPAY | PROVIDERS: Emergency Provider Student in an Organized Health Care Education/Training Program; PCP Family Medicine; Visit Provider Internal Medicine Cardiovascular Disease | DX: I49.9 Cardiac arrhythmia, unspecified (principal) | CPT/HCPCS: 93010 ==

== ENCOUNTER → 2023-06-23 09:52 | Outpatient (REF) | payer MEDICAID, SELFPAY ==
--- NOTE | 2023-06-23 09:56 | CA_ITS ---
Acquisition Time: 2023-06-23 10:54:40 Total Exercise Time: 00:08:50 Test Indications: CP Medications: SEE H Protocol: TOPHER Max HR: 146 BPM 77% of Pred: 188 BPM Max BP: 182/084 mmHG Max Work Load: 10.1 METS Exercise stress test exercise 8 min 50 sec of Topher protocol achieving 77% MPHR, with 6-7/10 chest stabbing, with mild to moderate SOB, with isolated PVC, with normotensive response to exercise, with t wave inversion aVF and v6. Chest Test reviewed with Dr. Ulloa If further testing is required stress echo or nuclear imaging. Referred By: Raissa Gross Overread By: Marina Centeno
== END ==
LOC: HO.CARD 09:52
PROVIDERS: PCP Family Medicine; Visit Provider Family Medicine
DX: R07.9 Chest pain, unspecified (principal)
CPT/HCPCS: 93017

== ENCOUNTER 2023-09-13 11:16 | Emergency (ER) | payer MEDICAID, SELFPAY ==
--- NOTE | 2023-09-13 | ECG_ITS ---
Test Reason : CHEST PAIN Blood Pressure : / mmHG Vent. Rate : 056 BPM Atrial Rate : 056 BPM P-R Int : 154 ms QRS Dur : 094 ms QT Int : 390 ms P-R-T Axes : 027 007 033 degrees QTc Int : 376 ms Sinus bradycardia Otherwise normal ECG When compared with ECG of 25-MAY-2023 11:09, No significant change was found Referred By: Generic ED Physician Electronically Signed By:BRIDGER DIAS MD
--- NOTE | ~2023-09-13 | XR_ITS ---
EXAMINATION: XR CHEST CLINICAL INFORMATION: Chronic chest pain COMPARISON: 05/23/2023 TECHNIQUE: 2 views of the chest were obtained. FINDINGS: No significant abnormality is noted involving the heart, lungs, mediastinum, bony thorax or soft tissues. XR/XR chest 2V IMPRESSION: No active cardiopulmonary disease.
[2023-09-13 11:32] VITALS: BP 145/104; PULSE 62; RESP 18; TEMP 36.6; O2SAT 99; BMI 48.4
--- NOTE | 2023-09-13 11:34 | ED_ITS ---
HPI - Chest Pain General Chief Complaint: Chest Pain Stated Complaint: CP Time Seen by Provider: 09/13/23 15:56 Source: patient Mode of arrival: ambulatory History of Present Illness ED Provider: Dr Mcguire HPI narrative: 33-year-old male with concerns regarding 4 months intermittent sharp chest pain, not associated with headaches or dizziness, fevers, chills, does suffer from asthma but otherwise no longer smoker and denies any alcohol or drug use. States that this has been worked up previously but nothing has been found. Related Data Previous Rx's ?Medication ?Instructions ?Recorded cyclobenzaprine 5 mg tablet 5 mg PO Q8H PRN pain (scale score 06/28/21 7-10) 5 days #14 tabs doxycycline hyclate 100 mg tablet 100 mg PO BID 7 days #14 tabs 06/28/21 lidocaine 5 % topical patch 1 patch topical DAILY PRN pain #30 06/28/21 (Lidoderm) ea cephalexin 500 mg tablet 500 mg PO Q8H 7 days #21 tabs 12/30/21 amlodipine 5 mg tablet 5 mg PO DAILY #30 tabs 01/22/22 amoxicillin 500 mg capsule 500 mg PO BID 10 days #20 caps 01/22/22 oxycodone 5 mg tablet 5 mg PO BID PRN pain #6 tabs 01/22/22 oseltamivir 75 mg capsule (Tamiflu) 75 mg PO Q12H 5 days #10 caps 02/28/22 amoxicillin 875 mg-potassium 1 tab PO BID 10 days #20 tabs 04/05/22 clavulanate 125 mg tablet oxycodone 5 mg capsule 5 mg PO Q8H PRN pain #10 caps 04/05/22 cephalexin 500 mg capsule 500 mg PO QID #28 caps 01/29/23 tramadol 50 mg tablet 50 mg PO Q6H PRN severe pain 01/29/23 (scale score 7-10) #12 tabs naproxen 500 mg tablet 500 mg PO BID PRN pain 30 days #60 03/20/23 tabs prednisone 20 mg tablet 60 mg (3 x 20 mg) PO DAILY Asthma 05/25/23 5 days #15 tabs omeprazole 40 mg capsule,delayed 40 mg PO DAILY #30 caps 09/13/23 release prednisone 50 mg tablet 50 mg PO DAILY 4 days #4 tabs 09/13/23 Allergies Allergy/AdvReac Type Severity Reaction Status Date / Time No Known Allergies Allergy Verified 09/13/23 11:35 Review of Systems 2 Review of Systems: Pertinent positives and negatives as stated in HPI PMFSH Past Medical History Source: nursing notes reviewed Medical History Asthma Social History Social History Advance Directives: No Do you have a plan to hurt others: No Plan Physical Exam 2 Vital Signs: Vital Signs: Last Vital Signs Temp 97.9 F 09/13/23 11:32 Pulse 62 09/13/23 11:32 Resp 18 09/13/23 11:32 BP 145/104 H 09/13/23 11:32 Pulse Ox 99 09/13/23 11:32 O2 Del Method Room Air 09/13/23 11:32 BMI result Body Mass Index 48.4 VITAL SIGNS: Reviewed. GENERAL: Well developed, well nourished, in no acute distress. HEAD: Normocephalic/atraumatic EYES: PERRLA, EOMI EARS: Ext canals without abnormality NOSE: Nares patent bilateral OROPHARYNX: no oral lesions noted, posterior pharynx clear NECK: Supple, no adenopathy LUNGS: Diminished bilaterally but no obvious wheeze or rhonchi. SpO2<99> CARDIOVASCULAR: Regular rate and rhythm without noted murmurs ABDOMEN: Soft, non-tender, non-distended with bowel sounds. MUSCULOSKELETAL: No tenderness, deformities, or effusions noted on gross inspection. EXTREMITIES: No cyanosis, clubbing or edema. SKIN: Inspection of the skin reveals no rashes NEUROLOGIC: Alert and oriented x 4. Strength and sensation to light touch were grossly intact x 4. Course Course Course Narrative: This is an RME: Additional HPI, ROS, PE not included below will be deferred to primary provider. RME assessment and note performed by: Becca Fabian PA-C This is a 26-[id number]-male, with no known medical problems, who presents to the ER with complaints of chest pain for the last 4 months. Has been seen multiple times for similar symptoms. Had appt this past monday but unable to make it as his kids also had appointments. Describes pain as sharp. Plan: Labs, EKG, CXR Medical Decision Making Medical Decision Making MDM Narrative: 33-year-old male with history and clinical presentation that I most highly suspect is related with a combination of mild asthma exacerbation and acid reflux. I reviewed prior documentation in it appears that patient has been treated with a short course of prednisone and he endorsed to me that he improved significantly after the prior treatments. Although patient has no complaints of shortness of breath during my discussion with him he appears to become breathless towards the end his sentences and will once again place him on a short course of prednisone. However, will also start patient with a script omeprazole and instructed him to follow-up with his primary care doctor. I reviewed and interpreted all investigations and hematologic indices are negative for leukocytosis/anemia/thrombocytopenia. Chemistry indices negative for MALIA/electrolyte/liver enzyme derangements. I sensitivity troponin is undetectable. Chest x-ray is negative for infiltrate or venous congestion otherwise my interpretation is in agreement with radiology's impression. EKG: Sinus bradycardia, HR-56, no STEMI, CT/QRS/QTC is within normal limits. Differential Diagnosis Differential Diagnoses: The differential diagnosis associated with the presentation includes Please see the discussion above Admission/Observation Consideration of admission/observation: Escalation of care including admission/observation considered Please see the discussion above Lab Data [facility] Lab Attestation statement: I reviewed the patient's lab results. Please see the discussion above 09/13/23 12:00 09/13/23 12:00 Labs: Lab Results 09/13/23 Range/Units 12:00 WBC 6.6 (4.8-10.8) X10*3/uL RBC 5.32 (4.60-5.80) X10*6/uL Hgb 16.2 (14.0-18.0) g/dl Hct 44.3 (42.0-52.0) % MCV 83.3 (80.0-98.0) fL MCH 30.5 (27.0-33.0) pg MCHC 36.6 H (31.0-36.0) g/dl RDW 12.2 (11.0-16.0) % Plt Count 287 (160-400) X10*3/uL MPV 10.8 (9.4-12.4) fL Immature Gran % (Auto) 0.3 (0.0-0.4) % Neut % (Auto) 42.8 L (45-73) % Lymph % (Auto) 42.5 H (20-40) % [place] % (Auto) 8.3 (2-11) % Eos % (Auto) 5.0 H (0-4) % Baso % (Auto) 1.1 (0-2) % Lymph # (Auto) 2.8 (1.2-4.9) X10*3/uL [place] # (Auto) 0.6 (0.1-1.2) X10*3/uL Eos # (Auto) 0.3 (0.0-0.4) X10*3/uL Baso # (Auto) 0.1 (0.0-0.2) X10*3/uL Abs Immat Gran (auto) 0.02 (0.00-0.03) X10*3/uL Absolute Neuts (auto) 2.9 (2.0-8.3) x10*3/uL Absolute Nucleated RBC 0.000 (0.0-0.012) X10*3/uL Nucleated RBC % (auto) 0.0 (0.0-0.2) /100WBC Sodium 141 (135-145) mmol/L Potassium 4.5 (3.3-5.1) mmol/L Chloride 110 H (96-108) mmol/L Carbon Dioxide 25 (22-29) mmol/L Anion Gap 11 L (12-20) BUN 10 (9-16) mg/dL Creatinine 0.82 (0.5-1.4) mg/dL Estim Creat Clear Calc 180.8 Estimated GFR > 60 Random Glucose 91 (60-115) mg/dL Calcium 9.7 (8.4-10.2) mg/dL Magnesium 2.2 (1.6-2.6) mg/dL Total Bilirubin 0.6 (0.0-1.0) mg/dL Direct Bilirubin 0.2 (0.0-0.5) mg/dL AST 21 (5-37) U/L ALT 32 (0-40) U/L Alkaline Phosphatase 61 (39-117) U/L Troponin I High Sens < 2.7 (<3.5-35.0) ng/L Total Protein 7.4 (6.5-8.0) g/dL Albumin 4.5 (3.5-5.0) g/dL Lipase 13 (8-78) U/L Influenza Type A (PCR) NEGATIVE (Negative) Influenza Type B (PCR) NEGATIVE (Negative) RSV RNA Qual (PCR) NEGATIVE (Negative) SARS-CoV-2 RNA (RT-PCR) NEGATIVE (Negative) Independent Interpretation I performed an independent interpretation of an: EKG Interpretation: Please see the discussion above Radiology Impression Discussion of test interpretation with radiology: I have reviewed the radiologist's reading. Radiologist Impression: Please see the discussion above External Record Review External record reviewed: Outpatient record, Prior outpatient labs and Prior outpatient radiology Chronic Conditions Asthma Critical Care Time Critical Care Time Critical Care Time: Yes Total Critical Care Time: 30 Attestation: I personally attest to this time spent taking care of the patient. Discharge Plan Discharge Clinical Impression: Chest pain, Asthma exacerbation, Acid reflux Patient Disposition: Home, Self-Care Instructions: Chest Pain (ED), Diet for Stomach Ulcers and Gastritis (ED), Gastroesophageal Reflux Disease (ED) Additional Instructions: 1. Suspect that you have GERD and you will be sent home with a prescription for omeprazole, also sending out with a short course of steroids for your asthma. 2. Please follow-up with your primary care doctor in the next 1-2 days for re- evaluation and discussion regarding a referral for Gastroenterology. Return to the ER for any worsening symptoms. Prescriptions: New prednisone 50 mg tablet 50 mg PO DAILY 4 Days Qty: 4 0RF omeprazole 40 mg capsule,delayed release(DR/EC) 40 mg PO DAILY Qty: 30 0RF No Action cephalexin 500 mg tablet 500 mg PO Q8H 7 Days Qty: 21 0RF amoxicillin 500 mg capsule 500 mg PO BID 10 Days Qty: 20 0RF amlodipine 5 mg tablet 5 mg PO DAILY Qty: 30 0RF oxycodone 5 mg tablet 5 mg PO BID PRN (Reason: pain) Qty: 6 0RF Rx Instructions: Partial Fill upon patient request. oseltamivir [Tamiflu] 75 mg capsule 75 mg PO Q12H 5 Days Qty: 10 0RF lidocaine [Lidoderm] 5 % adhesive patch,medicated 1 patch topical DAILY MDD remove after 12 hours PRN (Reason: pain) Qty: 30 0RF Rx Instructions: leave on most painful area for up to 12 hrs doxycycline hyclate 100 mg tablet 100 mg PO BID 7 Days Qty: 14 0RF cyclobenzaprine 5 mg tablet 5 mg PO Q8H PRN (Reason: pain (scale score 7-10)) 5 Days Qty: 14 0RF oxycodone 5 mg capsule 5 mg PO Q8H PRN (Reason: pain) Qty: 10 0RF Rx Instructions: Partial Fill upon patient request. amoxicillin-pot clavulanate 875-125 mg tablet 1 tab PO BID 10 Days Qty: 20 0RF cephalexin 500 mg capsule 500 mg PO QID Qty: 28 0RF tramadol 50 mg tablet 50 mg PO Q6H PRN (Reason: severe pain (scale score 7-10)) Qty: 12 0RF prednisone 20 mg tablet 60 mg PO DAILY 5 Days Qty: 15 0RF naproxen 500 mg tablet 500 mg PO BID PRN (Reason: pain) 30 Days Qty: 60 0RF Print Language: [place]se
[2023-09-13 12:05] LABS: MANUAL DIFF FLAG NO
[2023-09-13 12:07] LABS: Basophils Absolute Auto 0.1 X10*3/uL (0.0-0.2); Basophils Percent Auto 1.1 % (0-2); Eosinophils Absolute Auto 0.3 X10*3/uL (0.0-0.4); Hematocrit 44.3 % (42.0-52.0); Hemoglobin 16.2 g/dl (14.0-18.0); Imm Gran Abs Auto 0.02 X10*3/uL (0.00-0.03); Imm Gran Pct Auto 0.3 % (0.0-0.4); Lymphocytes Absolute Auto 2.8 X10*3/uL (1.2-4.9); Lymphocytes Percent Auto 42.5 % (20-40); Mean Corpuscular HGB Conc 36.6 g/dl (31.0-36.0); Mean Corpuscular Hemoglobin 30.5 pg (27.0-33.0); Mean Corpuscular Volume 83.3 fL (80.0-98.0); Mean Platelet Volume 10.8 fL (9.4-12.4); Monocytes Absolute Auto 0.6 X10*3/uL (0.1-1.2); Monocytes Percent Auto 8.3 % (2-11); Neutrophils Absolute Auto 2.9 x10*3/uL (2.0-8.3); Neutrophils Percent Auto 42.8 % (45-73); Platelet Count 287 X10*3/uL (160-400); Red Blood Count 5.32 X10*6/uL (4.60-5.80); Red Cell Distribution Width 12.2 % (11.0-16.0); White Blood Count 6.6 X10*3/uL (4.8-10.8)
[2023-09-13 12:22] LABS: Alanine Aminotransferase 32 U/L (0-40); Albumin Level 4.5 g/dL (3.5-5.0); Alkaline Phosphatase 61 U/L (39-117); Anion Gap 11 (12-20); Aspartate Amino Transferase 21 U/L (5-37); Bilirubin Direct 0.2 mg/dL (0.0-0.5); Bilirubin Total 0.6 mg/dL (0.0-1.0); Blood Urea Nitrogen 10 mg/dL (9-16); Calcium 9.7 mg/dL (8.4-10.2); Carbon Dioxide 25 mmol/L (22-29); Chloride 110 mmol/L (96-108); Creatinine Clr Calc Pharmacy 180.8; Estimated Glomerular Filt Rate > 60; Glucose Random 91 mg/dL (60-115); Lipase 13 U/L (8-78); Magnesium 2.2 mg/dL (1.6-2.6); Potassium 4.5 mmol/L (3.3-5.1); Sodium 141 mmol/L (135-145); Total Protein 7.4 g/dL (6.5-8.0)
[2023-09-13 12:35] LABS: Troponin-I High Sensitivity < 2.7 ng/L (<3.5-35.0)
[2023-09-13 12:43] LABS: Influenza A PCR NEGATIVE (Negative); Influenza B PCR NEGATIVE (Negative); Resp Syncy Virus RNA Qual PCR NEGATIVE (Negative); SARS COV2 PCR INHOUSE NEGATIVE (Negative)
[2023-09-13 17:29] VITALS: BP 154/90; PULSE 54; RESP 18; TEMP 36.9; O2SAT 98
[2023-09-13] MEDS: predniSONE 10 MG TABLET 50 MG PO (17:30)
[2023-09-13] MEDS: Acetaminophen 325 MG TABLET 975 MG PO (17:38)
[2023-09-13] MEDS: Lidocaine HCl Viscous 2 % 15 ML SOLUTION 10 ML MUCOUS MEM (17:38)
[2023-09-13] MEDS: Magnesium Hydrox/Alum Hydrox 30 ML ORAL.SUSP PO (17:38)
[2023-09-13 17:46] VITALS: BP 154/90; PULSE 56; RESP 18; TEMP 36.8; O2SAT 98
== END 2023-09-13 17:49 | disposition home or self-care (01) ==
PROVIDERS: Physician Assistant Medical; Emergency Provider Student in an Organized Health Care Education/Training Program
DX: R07.9 Chest pain, unspecified (principal); J45.901 Unspecified asthma with (acute) exacerbation; K21.9 Gastro-esophageal reflux disease without esophagitis; Z03.818 Encounter for observation for suspected exposure to other biological agents ruled out; Z79.899 Other long term (current) drug therapy
CPT/HCPCS: 0241U; 71046; 80048; 80076; 83690; 83735; 84484; 85025; 93005; 99283; 99284

== ENCOUNTER → 2023-09-13 11:19 | Outpatient (BNV) | payer MEDICAID, SELFPAY | PROVIDERS: Visit Provider Internal Medicine Cardiovascular Disease | DX: R07.9 Chest pain, unspecified (principal) | CPT/HCPCS: 93010 ==

== ENCOUNTER 2023-11-17 10:34 | Outpatient (REF) | payer MEDICAID, SELFPAY ==
[2023-11-17 14:21] LABS: Appearance Urine Clear; Color Urine Yellow; Glucose Urine UA Negative (Negative); Leukocyte Esterase Urine Negative (Negative); Nitrite Urine Negative (Negative); PH 5.5 (5.0-9.0); Specific Gravity - Urine 1.025 (1.005-1.025); Urine Blood Negative (Negative); Urine Ketones Negative (Negative); Urine Protein Negative (Neg-Trace)
== END 2023-11-17 10:35 | disposition home or self-care (01) ==
LOC: HO.CHCLNP 10:34
PROVIDERS: Visit Provider Family Medicine
DX: I10 Essential (primary) hypertension (principal); E66.01 Morbid (severe) obesity due to excess calories; Z68.41 Body mass index [BMI] 40.0-44.9, adult
CPT/HCPCS: 81003

== ENCOUNTER 2024-08-26 03:51 | Emergency (ER) | payer MEDICAID, SELFPAY ==
--- NOTE | ~2024-08-26 | XR_ITS ---
CLINICAL HISTORY: cough 2 view chest x-ray Comparison: CR/SR - XR CHEST 2V - 09/13/23 11:41 EDT Findings: The lungs are clear. Heart size is normal. No acute fracture. IMPRESSION: 1. No acute findings. This document has been electronically signed by: Valerio Villanueva MD on 08/26/2024 06:08:15
[2024-08-26 03:57] VITALS: BP 143/86; PULSE 62; RESP 16; TEMP 36.8; O2SAT 96; BMI 42.6
--- NOTE | 2024-08-26 05:07 | ED_ITS ---
HPI - General Adult General Chief complaint: General Medical Stated complaint: headache, sore throat, nauseous Time Seen by Provider: 08/26/24 05:07 History of Present Illness ED Provider: Nydia CHÁVEZ narrative: The patient is 34-year-old male with a history of hypertension asthma who says that he started to feel ill 2 days ago on Monday morning. He developed a headache that was gradual in onset. He was feeling worse on Monday. He had a sense of a runny nose and a cough, headache, nausea, vomiting. Chills. No definite fever. Related Data Previous Rx's ?Medication ?Instructions ?Recorded cyclobenzaprine 5 mg tablet 5 mg PO Q8H PRN pain (scal e score 06/28/21 7-10) 5 days #14 tabs doxycycline hyclate 100 mg tablet 100 mg PO BID 7 days #14 tabs 06/28/21 lidocaine 5 % topical patch 1 patch topical DAILY PRN pain #30 06/28/21 (Lidoderm) ea cephalexin 500 mg tablet 500 mg PO Q8H 7 days #21 tab s 12/30/21 amlodipine 5 mg tablet 5 mg PO DAILY #30 tabs 01/22 amoxicillin 500 mg capsule 500 mg PO BID 10 days #20 c aps 01/22/22 oxycodone 5 mg tablet 5 mg PO BID PRN pain #6 tabs 01/22/22 oseltamivir 75 mg capsule (Tamiflu) 75 mg PO Q12H 5 da ys #10 caps 02/28/22 amoxicillin 875 mg-potassium 1 tab PO BID 10 days #20 tabs 04/05/22 clavulanate 125 mg tablet oxycodone 5 mg capsule 5 mg PO Q8H PRN pain #10 cap s 04/05/22 cephalexin 500 mg capsule 500 mg PO QID #28 caps 01/29 tramadol 50 mg tablet 50 mg PO Q6H PRN severe pain 01/29/23 (scale score 7-10) #12 tabs naproxen 500 mg tablet 500 mg PO BID PRN pain 30 da ys #60 03/20/23 tabs prednisone 20 mg tablet 60 mg (3 x 20 mg) PO DAILY A sthma 05/25/23 5 days #15 tabs omeprazole 40 mg capsule,delayed 40 mg PO DAILY #30 ca ps 09/13/23 release prednisone 50 mg tablet 50 mg PO DAILY 4 days #4 tab s 09/13/23 acetaminophen 500 mg capsule 1,000 mg (2 x 500 mg) PO Q8H PRN 08/26/24 fever or pain #14 caps ibuprofen 400 mg tablet 400 mg PO Q6H PRN pain #14 t abs 08/26/24 ondansetron 4 mg disintegrating 4 mg PO Q6H PRN nausea and 08/26/24 tablet vomiting #10 tabs Allergies Allergy/AdvReac Type Severity Reaction Status Date / Time No Known Allergies Allergy Verified 08/26/24 03:59 Review of Systems Review of Systems: Yes all other systems are reviewed and are negative [facility] Past Medical History Medical History Asthma Social History Social History Smoked in Last 30 Days: No Use of substances other than those prescribed or required for medical reasons: Yes Substance Use Type: Marijuana Substance Use Frequency: Occasionally Advance Directives: No Advance Directives Information Provided: No Do you have a plan to hurt others: No Plan Physical Exam ED Vital Signs: Vital Signs - 24 hr 08/26/24 03:57 08/26/24 05:56 08/26/24 05:56 Temperature 98.2 F 97.9 F 97.9 F Pulse Rate 62 58 58 Respiratory Rate 16 18 18 Blood Pressure 143/86 H 151/75 H 151/75 H Pulse Oximetry 96 100 100 Oxygen Delivery Method Room Air Room Air Room Air BMI result Body Mass Index 42.6 Const Other: The patient is a large, robust looking 34-year-old. He looks mildly unwell but not acutely toxic or in distress in any way. Orientation/consciousness: patient oriented x3 HENMT Other: Face is symmetrical. The posterior pharynx is normal. Mucous membranes are moist. No facial asymmetry. Tympanic membranes are normal bilaterally. External auditory canals are normal bilaterally. Eyes General: appearance normal, both eyes and all related structures Eyelids: Yes eyelids normal Conjunctivae: conjunctivae normal Pupils: Equal, round and reactive pupils present EOM: EOMs intact bilaterally Neck Neck: Yes normal visual inspection, Yes full ROM and Yes no lymphadenopathy Resp Effort & Inspection: normal respiratory effort Auscultation: clear to auscultation bilaterally Cardio Other: No murmur heard Rate: regular rate Rhythm: regular rhythm Heart sounds: S1 normal heart sound present and S2 normal heart sound present GI Other: Abdomen is soft and nontender Skin Other: The skin is dry and unremarkable General skin exam: no rashes or lesions noted Neuro General: patient oriented x3, gait normal, tone normal, moves all extremities, no focal motor deficits and CN's II-XI intact bilaterally Cranial nerves: Yes Equal, round and reactive pupils present Extrem Other: There is no calf swelling or tenderness. No asymmetry. No peripheral edema. Medications Administered Discontinued Medications Generic Name Dose Route Start Last Admin Trade Name Freq PRN Reason Stop Dose Admin Ketorolac Tromethamine 30 mg 08/26/24 05:18 08/26/24 05:45 Ketorolac Tromethamine 30 Mg/Ml Vial IM 08/26/24 05:19 30 mg ONCE ONE Administration Prochlorperazine Edisylate 10 mg 08/26/24 05:18 08/26/24 05:45 Prochlorperazine Edisylate 10 Mg/2 Ml Vial IM 08/26/24 05:19 10 mg ONCE ONE Administration Medical Decision Making Medical Decision Making [facility] Narrative: The patient is a 34-year-old male who has been sick for 2 days. He has diffuse body aches, sore throat, bilateral ear discomfort, mild headache, cough, and nausea.. His description of the symptoms certainly sound like a viral syndrome. Vital signs are unremarkable. He is negative for influenza, COVID, and RSV. My suspicion for anything other than a viral syndrome is very low. He was treated symptomatically with IM ketorolac and I am prochlorperazine. He was reassured. He was prescribed ibuprofen, acetaminophen, and ondansetron. He should return if worse. Lab Data Labs: Lab Results 08/26/24 Range/Units 04:47 Influenza Type A (PCR) NEGATIVE (Negative) Influenza Type B (PCR) NEGATIVE (Negative) RSV RNA Qual (PCR) NEGATIVE (Negative) SARS-CoV-2 RNA (RT-PCR) NEGATIVE (Negative) Discharge Plan Discharge Clinical Impression: Acute viral syndrome Patient Disposition: Home, Self-Care Instructions: Viral Syndrome (ED) Additional Instructions: I believe that you have some kind of a viral syndrome. I suspect you may feel unwell for a couple of days more but then I expect you should start to feel better. You may use the ibuprofen and acetaminophen prescribed as needed for discomfort. You may use the ondansetron as needed for nausea. Drink lot of fluids. Rest and take it easy for a couple of days. Contact your regular doctor for additional advice as needed. Return to the emergency room if significantly worse. Prescriptions: New ibuprofen 400 mg tablet 400 mg PO Q6H PRN (Reason: pain) Qty: 14 0RF ondansetron 4 mg tablet,disintegrating 4 mg PO Q6H PRN (Reason: nausea and vomiting) Qty: 10 0RF acetaminophen 500 mg capsule 1,000 mg PO Q8H PRN (Reason: fever or pain) Qty: 14 0RF No Action cephalexin 500 mg tablet 500 mg PO Q8H 7 Days Qty: 21 0RF amoxicillin 500 mg capsule 500 mg PO BID 10 Days Qty: 20 0RF amlodipine 5 mg tablet 5 mg PO DAILY Qty: 30 0RF oxycodone 5 mg tablet 5 mg PO BID PRN (Reason: pain) Qty: 6 0RF Rx Instructions: Partial Fill upon patient request. oseltamivir [Tamiflu] 75 mg capsule 75 mg PO Q12H 5 Days Qty: 10 0RF lidocaine [Lidoderm] 5 % adhesive patch,medicated 1 patch topical DAILY MDD remove after 12 hours PRN (Reason: pain) Qty: 30 0RF Rx Instructions: leave on most painful area for up to 12 hrs doxycycline hyclate 100 mg tablet 100 mg PO BID 7 Days Qty: 14 0RF cyclobenzaprine 5 mg tablet 5 mg PO Q8H PRN (Reason: pain (scale score 7-10)) 5 Days Qty: 14 0RF oxycodone 5 mg capsule 5 mg PO Q8H PRN (Reason: pain) Qty: 10 0RF Rx Instructions: Partial Fill upon patient request. amoxicillin-pot clavulanate 875-125 mg tablet 1 tab PO BID 10 Days Qty: 20 0RF cephalexin 500 mg capsule 500 mg PO QID Qty: 28 0RF tramadol 50 mg tablet 50 mg PO Q6H PRN (Reason: severe pain (scale score 7-10)) Qty: 12 0RF prednisone 50 mg tablet 50 mg PO DAILY 4 Days Qty: 4 0RF omeprazole 40 mg capsule,delayed release(DR/EC) 40 mg PO DAILY Qty: 30 0RF prednisone 20 mg tablet 60 mg PO DAILY 5 Days Qty: 15 0RF naproxen 500 mg tablet 500 mg PO BID PRN (Reason: pain) 30 Days Qty: 60 0RF Referrals: Raissa Gross MD [Primary Care Provider, Medical] Stand Alone Forms: Work/School Release Interventions: ED Discharge Assessment Last Done: 08/26/24 05:56 Discharge Date/Time: 08/26/24 05:57 Print Language: [place]ian
[2024-08-26 05:28] LABS: Influenza A PCR NEGATIVE (Negative); Influenza B PCR NEGATIVE (Negative); Resp Syncy Virus RNA Qual PCR NEGATIVE (Negative); SARS COV2 PCR INHOUSE NEGATIVE (Negative)
[2024-08-26] MEDS: Prochlorperazine Edisylate 10 MG/2 ML VIAL IM (05:45)
[2024-08-26] MEDS: Ketorolac Tromethamine 30 MG/ML VIAL IM (05:45)
[2024-08-26 05:56] VITALS: BP 151/75; PULSE 58; RESP 18; TEMP 36.6; O2SAT 100
== END 2024-08-26 05:57 | disposition home or self-care (01) ==
PROVIDERS: Emergency Provider Emergency Medicine; PCP Family Medicine
DX: B34.9 Viral infection, unspecified (principal); R05.9 Cough, unspecified; R51.9 Headache, unspecified; Z03.818 Encounter for observation for suspected exposure to other biological agents ruled out; J45.909 Unspecified asthma, uncomplicated
CPT/HCPCS: 0241U; 71046; 96372; 99284; J0737; J1885

== ENCOUNTER → 2024-08-26 04:10 | Outpatient (BNV) | payer MEDICAID, SELFPAY | PROVIDERS: Emergency Provider Emergency Medicine; PCP Family Medicine; Visit Provider Radiology Diagnostic Radiology | DX: R05.9 Cough, unspecified (principal) | CPT/HCPCS: 71046 ==